=== PATIENT | female | born 1990 | race Caucasian/White ===

== ENCOUNTER 2023-07-17 15:32 | Outpatient (CLI) | payer OTHER, SELFPAY ==
[2023-07-17 16:21] LABS: Hematocrit 40.3 % (37.0-47.0); Hemoglobin 13.4 g/dL (12.0-15.0); Mean Corpuscular HGB Conc 33.3 g/dl (32-36); Mean Corpuscular Hemoglobin 30.2 pg (26-34); Mean Corpuscular Volume 90.8 fl (80-100); Mean Platelet Volume 10.3 fl (7.4-10.4); Platelet Count Result 293 k/mm3 (150-375); Red Blood Count 4.44 M/mm3 (4.2-5.4); Red Cell Distribution Width 12.6 % (11.5-14.5); White Blood Count 9.7 K/mm3 (4.5-10.0)
[2023-07-17 17:44] LABS: Rubella IgG Antibody 20.5 IU/ML
[2023-07-17 18:05] LABS: Hepatitis B Surface Anti Res Negative
[2023-07-18 08:38] LABS: HIV 1/2 Ab P24 Ag Result Negative (Negative)
[2023-07-18 12:09] LABS: Rapid Plasma Reagin Non-Reactive (NonReactive)
[2023-07-18 12:35] LABS: Hepatitis B Surface Antigen Negative (Negative)
== END 2023-07-17 15:33 | disposition home or self-care (01) ==
PROVIDERS: PCP Obstetrics & Gynecology; Visit Provider Obstetrics & Gynecology
DX: Z34.90 Encounter for supervision of normal pregnancy, unspecified, unspecified trimester (principal); Z3A.00 Weeks of gestation of pregnancy not specified
CPT/HCPCS: 36415; 85027; 86592; 86703; 86706; 86762; 86850; 86900; 86901; 87340; G0432

== ENCOUNTER 2023-09-03 14:35 | Outpatient (CLI) | payer OTHER, SELFPAY ==
--- NOTE | ~2023-09-03 | US_ITS ---
EXAMINATION: US OB /maternal detail DATE: 09/03/2023 15:49 INDICATION: anatomic survey. TECHNIQUE: Real-time ultrasound of the pelvis was performed. COMPARISON: None. FINDINGS: There is a single living fetus in variable presentation. The placenta is posterior, 5.2 cm from the cervix. heart rate is 149 beats per minute (bpm). The amniotic fluid volume is subjectively nor mal. The following biometric data were obtained: Biparietal diameter (BPD): 4.2 cm; head circumference (HC): 15.7 cm; abdominal circumference (AC): 13 .5 cm; femur length (FL): 3.0 cm. These measurements are concordant. Estimated weight is 266 g +/- 40 g, which correlates with the 69th percentile when 01/31/24 is us ed as estimated date of delivery. As single measurements, these parameters are each equal to the following estimated gestational ages: BPD: 18 weeks 5 days. HC: 18 weeks 4 days. AC: 19 weeks 0 days. FL: 19 weeks 1 days. estimated gestational age based solely on measurements from this exam is 18 weeks 6 days +/- 1 weeks 2 days. The head anatomy is suboptimally visualized. The cerebral ventricles, cerebellum, cisterna magna, nuc sandee fold, and visualized portions of the spine are normal. The heart is normal. The diaphragm, stomac h, and kidneys are normal. The bladder is not seen. There are two umbilical arteries to yield a 3-ves ledy cord. The cord insertion is normal. IMPRESSION: 1. Single living fetus in variable presentation. 2. Estimated weight is 266 g +/- 40 g, which correlates with the 69th percentile when 01/31/24 i s used as estimated date of delivery. 3. bladder not visualized. Reviewed, dictated and finalized at location A. D SECURITY PROFESSIONAL IMPRESSION: 1. Single living fetus in variable presentation. 2. Estimated weight is 266 g +/- 40 g, which correlates with the 69th pe rcentile when 01/31/24 is used as estimated date of delivery. 3. bladder not visualized.
== END 2023-09-03 14:36 | disposition home or self-care (01) ==
LOC: ANHIMG 14:38
PROVIDERS: PCP Obstetrics & Gynecology; Visit Provider Obstetrics & Gynecology
DX: Z36.9 Encounter for antenatal screening, unspecified (principal); Z3A.18 18 weeks gestation of pregnancy
CPT/HCPCS: 76805

== ENCOUNTER 2023-10-02 13:59 | Outpatient (CLI) | payer OTHER, SELFPAY ==
--- NOTE | ~2023-10-02 | US_ITS ---
EXAMINATION: US OB follow up DATE: 10/02/2023 15:27 INDICATION: Amniotic fluid assessment. Second trimester. bladder not visualized at anatom ic survey. TECHNIQUE: Real-time ultrasound of the pelvis was performed. COMPARISON: Ultrasound 09/03/2023 FINDINGS: There is a single living fetus in vertex presentation. The placenta is posterior. heart rate i s 141 beats per minute (bpm). The bladder is normal. The cervical length is 7.7 cm on transabdo khari images, which is normal. The amniotic fluid index is 10.7 cm, which is normal. The following biometric data were obtained: Biparietal diameter (BPD): 5.2 cm; head circumference (HC): 20.0 cm; abdominal circumference (AC): 18 .7 cm; femur length (FL): 4.0 cm. These measurements are concordant. Estimated weight is 563 g +/- 85 g, which correlates with the 63rd percentile when 01/31/24 is us ed as estimated date of delivery. As single measurements, these parameters are each equal to the following estimated gestational ages: BPD: 21 weeks 6 days. HC: 22 weeks 1 days. AC: 23 weeks 3 days. FL: 23 weeks 0 days. estimated gestational age based solely on measurements from this exam is 22 weeks 4 days +/- 1 weeks 4 days. IMPRESSION: 1. Single living fetus in vertex presentation. 2. Estimated weight is 563 g +/- 85 g, which correlates with the 63rd percentile when 01/31/24 i s used as estimated date of delivery. 3. Normal bladder. 4. Normal amniotic fluid index. Reviewed, dictated and finalized at location E. RATIVE ENGRAVER APPRENTICE IMPRESSION: 1. Single living fetus in vertex presentation. 2. Estimated weight is 563 g +/- 85 g, which correlates with the 63rd pe rcentile when 01/31/24 is used as estimated date of delivery. 3. Normal bladder. 4. Normal amniotic fluid index.
== END 2023-10-02 14:00 | disposition home or self-care (01) ==
PROVIDERS: PCP Obstetrics & Gynecology; Visit Provider Obstetrics & Gynecology
DX: Z36.9 Encounter for antenatal screening, unspecified (principal)
CPT/HCPCS: 76816

== ENCOUNTER 2023-11-09 09:43 | Outpatient (CLI) | payer OTHER, SELFPAY ==
[2023-11-09 18:23] LABS: Hematocrit 38.3 % (37.0-47.0); Hemoglobin 12.6 g/dL (12.0-15.0)
[2023-11-09 18:30] LABS: Glucose 1 Hour 153 mg/dL
[2023-11-09 19:11] LABS: HIV 1/2 Ab P24 Ag Result Negative (Negative)
== END 2023-11-09 09:44 | disposition home or self-care (01) ==
PROVIDERS: PCP Obstetrics & Gynecology; Visit Provider Obstetrics & Gynecology
DX: Z34.90 Encounter for supervision of normal pregnancy, unspecified, unspecified trimester (principal); Z3A.00 Weeks of gestation of pregnancy not specified
CPT/HCPCS: 36415; 85014; 85018; 86703; G0432

== ENCOUNTER 2023-11-17 07:02 | Outpatient (CLI) | payer OTHER, SELFPAY ==
[2023-11-17 07:27] LABS: Glucose Fasting 95 mg/dL
[2023-11-17 09:33] LABS: Glucose 1 Hour 161 mg/dL
[2023-11-17 10:26] LABS: Glucose 2 Hour 141 mg/dL
[2023-11-17 11:44] LABS: Glucose 3 Hour 138 mg/dL
== END 2023-11-17 07:03 | disposition home or self-care (01) ==
LOC: ANHLAB 07:08
PROVIDERS: Visit Provider Obstetrics & Gynecology
DX: O99.810 Abnormal glucose complicating pregnancy (principal); Z3A.00 Weeks of gestation of pregnancy not specified
CPT/HCPCS: 36415; 82951; 82952

== ENCOUNTER 2024-01-08 14:30 | Outpatient (CLI) | payer OTHER, SELFPAY ==
--- NOTE | ~2024-01-08 | US_ITS ---
EXAMINATION: US OB follow up DATE: 01/08/2024 15:55 INDICATION: Assess growth TECHNIQUE: Real-time ultrasound of the pelvis was performed. The interpreting radiologist was not pre sent for the study. COMPARISON: None. FINDINGS: There is a single living fetus in vertex presentation. The placenta is posterior fundal. heart rate is 131 beats per minute (bpm). The amniotic fluid index is 11.0 cm, which is normal (5th%-95%: 7.7-24.9 cm at 36 weeks estimated gestational age). Normal cervical length of at least 4 cm with the internal cervical os obscured by the vertex. The following biometric data were obtained: BPD: 9.1 cm -> 36 weeks 5 days Head circumference: 33.1 cm -> 37 weeks 5 days Abdominal circumference: 33.4 cm -> 37 weeks 2 days Femur length: 7.4 cm -> 37 weeks 6 days These measurements are concordant. Head circumference to abdominal circumference ratio: 0.99 (normal range 0.91-1.05). Estimated weight: 3206 g (+/-) 481 g or 7 lbs. 1 oz. (+/-) 1 lbs. 1 oz. IMPRESSION: 1. Single living fetus in vertex presentation with heart rate of 131r bpm. 2. Normal amniotic fluid index of 11.0 cm. 3. Estimated weight is 74th percentile by Hadlock criteria when 01/31/2024 is used as the estimat ed date of delivery (WALTER). Please correlate with clinical information or earlier ultrasounds for most accurate WALTER. Reviewed, dictated and finalized at location A. IMPRESSION: 1. Single living fetus in vertex presentation with heart rate of 131r bpm . 2. Normal amniotic fluid index of 11.0 cm. 3. Estimated weight is 74th percentile by Hadlock criteria when 01/31/2024 is used as the estimated date of delivery (WALTER). Please correlate with clinical information or earlier ultrasounds for most accurate WALTER.
== END 2024-01-08 14:31 | disposition home or self-care (01) ==
LOC: ANHIMG 14:35
PROVIDERS: Visit Provider Obstetrics & Gynecology
DX: Z34.90 Encounter for supervision of normal pregnancy, unspecified, unspecified trimester (principal); Z3A.00 Weeks of gestation of pregnancy not specified
CPT/HCPCS: 76816

== ENCOUNTER 2024-01-24 14:50 | Inpatient (IN) | payer OTHER, SELFPAY ==
[2024-01-24] VITALS (80 sets, daily range): BP systolic 91–161; BP diastolic 49–80; PULSE 73–132; RESP 16; TEMP 36.6–37.1; O2SAT 93–100; BMI 32.5
[2024-01-24 15:28] LABS: Basophils Percent Auto 0.2 % (0.2-1.2); Eosinophils Percent Auto 0.3 % (0-4.4); Hematocrit 36.4 % (37.0-47.0); Hemoglobin 12.1 g/dL (12.0-15.0); Immature Granulocyte Absolute 0.08 K/mm3 (0.00-0.031); Immature Granulocyte Percent A 0.8 % (0-0.5); Lymphocytes Percent Auto 16.9 % (18.3-44.2); Mean Corpuscular HGB Conc 33.2 g/dl (32-36); Mean Corpuscular Hemoglobin 31.3 pg (26-34); Mean Corpuscular Volume 94.1 fl (80-100); Mean Platelet Volume 10.4 fl (7.4-10.4); Monocytes Absolute Auto 0.7 K/mm3 (0.1-0.6); Monocytes Percent Auto 6.1 % (2.6-8.5); Neutrophils Absolute Auto 8.1 K/mm3 (1.3-6.7); Neutrophils Percent Auto 75.7 % (45.5-73.1); Platelet Count Result 276 k/mm3 (150-375); Red Blood Count 3.87 M/mm3 (4.2-5.4); Red Cell Distribution Width 13.4 % (11.5-14.5); White Blood Count 10.7 K/mm3 (4.5-10.0)
--- NOTE | 2024-01-24 15:29 | LDADM ---
This patient, Elena Thompson, was admitted to Labor/Delivery/Recovery 106 on 01/24/24 at 14:50. Plans for labor, pain management and were discussed with patient. Patient/family oriented to hospital policies and general routines including ID bracelet, bed and alarms, visiting hours, pain management, procedures, bathroom and other care routines, personal items, smoking policy, room service/diet and guest tray routines, infant security routines, and visiting hours. Patient/Family are encouraged to report perceived risks to care and to ask questions if they do not understand what they are told or what they should do. See OBIX for further documentation.
--- NOTE | 2024-01-24 16:09 | PM.IMHP ---
H&P: HPI History of Present Illness Date/Time: 01/24/24 16:09 Chief Complaint: rupture of membranes at term Narrative: 33-year-old female 2 para 1 whose last menstrual period was 05/03/2023, EDC is 01/31/2024, confirmed by 11 week ultrasound who presents at 39 weeks gestation with spontaneous rupture membranes prior to admission. Her has been uncomplicated. She is negative for group B strep. She failed her diabetic screen but passed her 3hour PMFSH Family History Family History Other Chronic obstructive pulmonary disease Diabetes mellitus Social History Social History Smoking status: Never smoker Substance use: never Do You Feel Safe in your Home?: Yes Lack of Transportation: No Lack of Food: Never True Current Housing: I Have Housing Concerned About Future Housing: No Difficulty Paying Gas/Electric Bills: No Difficulty Paying for Meds: No Currently Unemployed: No Education: Bachelor's Degree Difficulty w/ Childcare or Family Care: No Spiritual care concerns: No Meds Home Medications and Allergies Home Medications Medication Instructions Recorded Confirmed Type omeprazole 20 mg tablet,delayed 20 mg PO DAILY 01/01/24 01/01/24 History release vits no.126-ferrous fum 1 tablet PO DAILY 01/01/24 01/01/24 History 28 mg iron-folic acid 800 mcg tablet (Classic ) Allergies Allergy/AdvReac Type Severity Reaction Status Date / Time No Known Allergies Allergy Verified 01/24/24 15:25 Vital Signs Vital Signs - 24 hr 01/24/24 15:15 01/24/24 15:30 01/24/24 15:45 Pulse Rate 109 H 95 99 Blood Pressure 136/80 126/78 127/75 Oxygen Delivery 01/24/24 15:27 Pulse Rate Blood Pressure Oxygen Delivery Room Air Exam Const: General: cooperative, healthy appearing and comfortable Nutritional Appearance: average body habitus Orientation/consciousness: oriented to person, oriented to place and oriented to time HENMT: Head: normal to inspection Resp: Effort & Inspection: normal respiratory effort Cardio: Rate: regular rate Rhythm: regular rhythm Heart sounds: S1 normal heart sound present and S2 normal heart sound present GI: Inspection: normal to inspection ( gravid soft uterus) : External Female Exam: normal external appearance Speculum Exam - Vagina: normal appearance of the vagina Speculum Exam - Cervix: normal appearance of the cervix ( cervix 3cm by RN exam. FHTs reassuring. Gross rupture of membranes noted) H&P: Results Labs Labs: Short CBC 01/24/24 Range/Units 15:23 WBC 10.7 H (4.5-10.0) K/mm3 Hgb 12.1 (12.0-15.0) g/dL Hct 36.4 L (37.0-47.0) % Plt Count 276 (150-375) k/mm3 Assessment and Plan Assessment and plan (1) Term : Code(s): Z34.90 - Encounter for supervision of normal , unspecified, unspecified trimester Status: Acute (2) Spontaneous rupture of membranes: Status: Acute Plan will begin Pitocin as the patient is not miles regularly. She has an epidural candidate and spontaneous vaginal delivery is expected
[2024-01-24] MEDS: OXYTOCIN 30 UNITS/NS 500 ML 30 UNITS/500 ML BAG IV CONT (16:12)
[2024-01-24] MEDS: LACTATED RINGERS 1,000 ML 125 ML IV CONT ×2 (16:12→20:50)
[2024-01-24 17:06] LABS: HIV 1/2 Ab P24 Ag Result Negative (Negative)
--- NOTE | 2024-01-24 17:14 | WPDANESEPP ---
Anes - Eval Pre Procedure Procedure: Labor epidural Date/Time: 01/24/24 17:14 Surgeon: Calvin Escalante Preop Diagnosis: Abdominal pain with contractions Pre Op Diagnosis: IOL Patient Data Age: 33 Gender: F Height: 1.73 m Weight: 97 kg Last Vital Signs Temp 98.8 F 01/24/24 16:00 Pulse 99 01/24/24 15:45 Resp 16 01/24/24 16:00 BP 127/75 01/24/24 15:45 O2 Del Method Room Air 01/24/24 15:27 Allergies Allergy/AdvReac Type Severity Reaction Status Date / Time No Known Allergies Allergy Verified 01/24/24 15:25 Home Medications Medication Instructions Recorded Confirmed Type omeprazole 20 mg tablet,delayed 20 mg PO DAILY 01/01/24 01/01/24 History release vits no.126-ferrous fum 1 tablet PO DAILY 01/01/24 01/01/24 History 28 mg iron-folic acid 800 mcg tablet (Classic ) Laboratory Tests 01/24/24 15:23 WBC 10.7 H K/mm3 (4.5-10.0) RBC 3.87 L M/mm3 (4.2-5.4) Hgb 12.1 g/dL (12.0-15.0) Hct 36.4 L % (37.0-47.0) MCV 94.1 fl (80-100) MCH 31.3 pg (26-34) MCHC 33.2 g/dl (32-36) RDW 13.4 % (11.5-14.5) Plt Count 276 k/mm3 (150-375) MPV 10.4 fl (7.4-10.4) Immature Gran % (Auto) 0.8 H % (0-0.5) Neut % (Auto) 75.7 H % (45.5-73.1) Lymph % (Auto) 16.9 L % (18.3-44.2) [place] % (Auto) 6.1 % (2.6-8.5) Eos % (Auto) 0.3 % (0-4.4) Baso % (Auto) 0.2 % (0.2-1.2) Lymph # (Auto) 1.80 K/mm3 (0.9-3.2) [place] # (Auto) 0.7 H K/mm3 (0.1-0.6) Eos # (Auto) 0.0 K/mm3 (0-0.3) Baso # (Auto) 0.0 K/mm3 (0.0-0.1) Abs Immat Gran (auto) 0.08 H K/mm3 (0.00-0.031) Absolute Neuts (auto) 8.1 H K/mm3 (1.3-6.7) Absolute Nucleated RBC 0.000 K/mm3 (0.0-0.012) Nucleated RBC % 0.0 % (0.0-0.2) RPR Pending HIV 1&2 Ab/P24 Ag 4thGn Negative (Negative) Blood Type O Positive Antibody Screen Negative : gestational age HCG: positive Patient hx anesthesia problems: none Family hx anesthesia problems: none Results Review: All pre-operative results and documents have been reviewed as part of the pre-operative evaluation. [facility] Past Medical History Medical History (Updated 01/24/24 @ 17:15 by Stef Wild Jr., CRNA) Obesity Term Family History Family History Other Chronic obstructive pulmonary disease Diabetes mellitus Social History Social History Smoking status: Never smoker Substance use: never Do You Feel Safe in your Home?: Yes Lack of Transportation: No Lack of Food: Never True Current Housing: I Have Housing Concerned About Future Housing: No Difficulty Paying Gas/Electric Bills: No Difficulty Paying for Meds: No Currently Unemployed: No Education: Bachelor's Degree Difficulty w/ Childcare or Family Care: No Spiritual care concerns: No Exam Day of Procedure 01/24/24 17:14 Patient weight: obese
[2024-01-25] VITALS (78 sets, daily range): BP systolic 103–135; BP diastolic 52–107; PULSE 71–109; RESP 16–18; TEMP 36.6–37.5; O2SAT 97–100
[2024-01-25] MEDS: OXYTOCIN 30 UNITS/NS 500 ML 30 UNITS/500 ML BAG 999 UNITS IV CONT (04:22)
--- NOTE | 2024-01-25 04:30 | P.PCNOB_ITS ---
OB - Vaginal Delivery Note Procedure Delivery date: 01/25/24 Induction method: None Delivery augmentation: Pitocin Delivery monitor: External FHT and Internal Uterine Route of delivery: Episiotomy description: None Laceration Description: Perineal - 1st Degree Delivery repair: vicryl Specimen: No Quantitative Blood Loss (ml): 61 Anesthesia type: Epidural Disposition: Floor Complications: No immediate complications [place] [facility] Date of : 01/25/24 Time of : 04:18 Weeks of gestation at delivery: 39 gender: Female Weight (pounds): 9 Weight (ounces): 9 presentation: vertex position: Right Occiput Anterior Placenta delivery description: Spontaneous Cord Vessel Description: 3 Vessels score one minute: 9 score five minutes: 9
--- NOTE | 2024-01-25 04:32 | P.DS_ITS ---
DS: Admitting Diagnosis Discharge Date 01/26/2024 Admitting Diagnosis Term DS: Discharge Diagnosis Discharge Diagnosis (1) Term : Code(s): Z34.90 - Encounter for supervision of normal , unspecified, unspecified trimester Status: Acute (2) Spontaneous rupture of membranes: Status: Acute DS: Summary Hospital Course Reason for hospitalization: patient was admitted on 01/24/2024 at 39 weeks gestation with spontaneous rupture membranes Hospital Course: patient underwent spontaneous vaginal delivery on 01/25/2024 early a.m.. Her h ospital course of [place] remained afebrile. She was up, eating regular diet, voiding without difficulty, breast-feeding removed generally without complaints. Time Spent with Patient Time attestation: Total time spent providing and/or coordinating discharge services: Exam Const: General: cooperative, healthy appearing and comfortable Nutritional Appearance: average body habitus Orientation/consciousness: oriented to person, oriented to place and oriented to time HENMT: Head: normal to inspection Resp: Effort & Inspection: normal respiratory effort Cardio: Rate: regular rate Rhythm: regular rhythm Heart sounds: S1 normal heart sound present and S2 normal heart sound present GI: Inspection: normal to inspection ( Fundus firm below the umbilicus) DS: Data Data Completed and Pending Labs on day of discharge: Labs from last 24 hours 01/24/24 15:23 WBC 10.7 H RBC 3.87 L Hgb 12.1 Hct 36.4 L MCV 94.1 MCH 31.3 MCHC 33.2 RDW 13.4 Plt Count 276 MPV 10.4 Immature Gran % (Auto) 0.8 H Neut % (Auto) 75.7 H Lymph % (Auto) 16.9 L [place] % (Auto) 6.1 Eos % (Auto) 0.3 Baso % (Auto) 0.2 Lymph # (Auto) 1.80 [place] # (Auto) 0.7 H Eos # (Auto) 0.0 Baso # (Auto) 0.0 Abs Immat Gran (auto) 0.08 H Absolute Neuts (auto) 8.1 H Absolute Nucleated RBC 0.000 Nucleated RBC % 0.0 RPR Pending HIV 1&2 Ab/P24 Ag 4thGn Negative Blood Type O Positive Antibody Screen Negative Discharge Plan Discharge Attending physician on discharge: Chris Reyes Discharging Clinician: Dalla Ava,Chris J. Patient Disposition: Home, Self-Care Activity: may shower and pelvic rest Diet: heart healthy Wound Care Instructions: follow printed instructions Patient Instructions: Antibiotic Form Stand Alone Forms: General Discharge Information Follow-up/Referrals: Roman Malone MD [Physician] - Discharge Medications: Continued Classic 28 mg iron- 800 mcg Tablet 1 tablet PO DAILY omeprazole 20 mg Tablet,Delayed Release (Dr/Ec) 20 mg PO DAILY Date of admission: 01/24/24 14:50 Primary Care Provider: Mónica,Kory Admitting Provider: Roman Malone Attending physician on admission: Roman Malone Condition: Stable
[2024-01-25] MEDS: OXYTOCIN 30 UNITS/NS 500 ML 30 UNITS/500 ML BAG 125 UNITS IV CONT (04:45)
[2024-01-25] MEDS: BENZOCAINE 20% AER SPR (*SP) 56 GM CAN 1 SPRAY TOPICAL (07:01)
[2024-01-25] MEDS: IBUPROFEN 600 MG TABLET PO ×2 (07:01→16:26)
--- NOTE | 2024-01-25 07:20 | PC.NURSE ---
Patient transferred to post room #285 via wheelchair. Support person present. Oriented to unit, room, information board, rooming in, admission packet and security measures. Patient verbalizes understanding.
[2024-01-25] MEDS: DOCUSATE SODIUM 100 MG CAPSULE PO (09:39)
[2024-01-25] MEDS: MULTIVIT/MIN/PREN/FOL AC/IRON TABLET 1 TAB PO (09:39)
[2024-01-25] MEDS: ACETAMINOPHEN 325 MG TABLET 650 MG PO ×2 (09:39→19:51)
--- NOTE | 2024-01-25 13:10 | PC.NURSE ---
Introductions were made, then consulted with patient to assess needs related to . Mother led the conversation with her?plans to pump and bottle feed?her which is how she fed her first baby. Discussed milk production, building/maintaining a milk supply, duration of feeding, signs of adequate intake/output and how to record on the feeding sheet. Mother has her own pump from home that she used with her last baby. She states that her nipples hurt during pumping even though she used the same size flange that previously worked for her. She does have lanolin to apply for comfort. Patient instructed to call out at next pumping to be sized for a correct flange fit. Also discussed use and storage of breastmilk including placing formula into the same bottle that she uses to pump small amounts of colostrum into, so that baby can get the entirety of the pumped colostrum as she drinks the formula. Parents voiced understanding of information, demonstrated learning and will call if there is a request for assistance. Reported to the Primary RN.
[2024-01-25 14:17] LABS: Rapid Plasma Reagin Non-Reactive (NonReactive)
[2024-01-26 05:00] VITALS: BP 107/69; PULSE 74; RESP 18; TEMP 36.8; O2SAT 100
[2024-01-26 05:38] LABS: Hematocrit 35.4 % (37.0-47.0); Hemoglobin 11.5 g/dL (12.0-15.0)
[2024-01-26] MEDS: IBUPROFEN 600 MG TABLET PO (06:42)
[2024-01-26] MEDS: MULTIVIT/MIN/PREN/FOL AC/IRON TABLET 1 TAB PO (06:42)
[2024-01-26] MEDS: ACETAMINOPHEN 325 MG TABLET 650 MG PO (06:43)
[2024-01-26] MEDS: DOCUSATE SODIUM 100 MG CAPSULE PO (06:44)
[2024-01-26 07:00] VITALS: BP 115/79; PULSE 74; RESP 16; TEMP 37.2; O2SAT 99
--- NOTE | 2024-01-26 07:47 | PC.NURSE ---
Patient was given the opportunity to view the discharge video Mother & Baby Care, The First Two Weeks and to ask questions. Patient declined viewing the video and has been given the mother/baby guide for home reference.
--- NOTE | 2024-01-26 07:50 | PM.OBPNVD ---
OB - PN: Subj Subjective Date/time seen: 01/26/24 07:50 Patient comments: no complaints and pain well controlled baby status: doing well OB - PN: Obj Data Labs 01/26/24 04:50 Labs: Laboratory Results - last 24 hr 01/24/24 01/26/24 15:23 04:50 Hgb 11.5 L Hct 35.4 L RPR Non-reactive OB - PN A/P Plan day: 2 Plan: routine care, discharge home and follow up 6 weeks Time Spent With Patient Time: Total time spent is greater than 50% in coordination of care (as documented) at patient's floor/unit and/or counseling patient: Time with patient: less than 15 minutes Exam Const: General: cooperative, healthy appearing and comfortable Nutritional Appearance: average body habitus Orientation/consciousness: oriented to person, oriented to place and oriented to time HENMT: Head: normal to inspection Resp: Effort & Inspection: normal respiratory effort Cardio: Rate: regular rate Rhythm: regular rhythm Heart sounds: S1 normal heart sound present and S2 normal heart sound present GI: Inspection: normal to inspection
--- NOTE | 2024-01-26 11:08 | WPDANLDPN2 ---
Anes-Prog Note L&D Date/Time: 01/26/24 11:08 Comfortable throughout: labor and delivery Neuraxial method: epidural Epidural/Spinal procedure site: clean & non-tender Neuro status: Neuro function grossly intact. Cardiovascular status: normal Respiratory status: normal Airway patency: baseline Mental status: baseline Post-Op hydration status: normal Vital Signs: Last Vital Signs Temp 37.2 C 01/26/24 07:00 Pulse 74 01/26/24 07:00 Resp 16 01/26/24 07:00 BP 115/79 01/26/24 07:00 Pulse Ox 99 01/26/24 07:00 O2 Del Method Room Air 01/26/24 07:00 Pain score (VAS): 2 Post-procedural complaints: none Patient feedback: Patient satisfied with anesthetic care.
[2024-01-28 12:06] VITALS: BP 103/69; PULSE 83; RESP 18; TEMP 36.4; O2SAT 98
== END 2024-01-26 12:25 | disposition home or self-care (01) | DRG 807 ==
LOC: ANHLDR 01-25 04:34 → ANHOB2 01-26 09:52 → ANHLDR 01-28 13:18 → ANHOB2 01-28 13:18
PROVIDERS: Admitting Provider Obstetrics & Gynecology; Visit Provider Obstetrics & Gynecology
DX: O99.214 Obesity complicating childbirth (principal); Z37.0 Single live birth; O70.0 First degree perineal laceration during delivery; Z3A.39 39 weeks gestation of pregnancy
CPT/HCPCS: 36415; 84112; 85014; 85018; 85025; 86592; 86703; 86850; 86900; 86901; A9270; G0432; J2590; J2795; J7120

== ENCOUNTER 2024-10-03 15:46 | Outpatient (CLI) | payer OTHER, SELFPAY ==
--- OUTSIDE RECORDS SUMMARY | 2024-10-03 15:51 | XMS_ITS | Referral Summary ---
Author Organization [facility] [employer] Address [address] [place] [address] Care Team Providers Care Production Administrative Assistant Name Role Phone Unavailable Primary Care Provider Unavailabl e Source Comments [facility] [employer],non-owned Affiliates and Associated Physician Practices is amultiple site organization consisting of ambulatory clinics and hospital sitesin [place], [place], [place] and [place]. This disclosure is being madepursuant to the Care Everywhere program and may not contain all information available regarding this patient. Last updated [email or web address] Allergies No known active allergies Medications * Be aware that medications may not be up to date on this document. Alwaysverify current medications with the patient. Medication Sig Dispensed Refills Start Date End Date Status MV-Min-Fe Fum-FA-DHA ( 1 PO) Take 1 capsule by mouth once daily 11/04/2020 Active ibuprofen (MOTRIN) 600 MG tablet Take 1 (one) tablet by mouth every 6 hours 60 tablet 11/26/2021 Active Additional Information Patient not taking.Reported on 07/26/2022 Active Problems Problem Noted Date Diagnosed Date LGA (large for gestational a ge) fetus affecting management of mother 08/04/2021 GBS bacteriuria 04/14/2021 Lentigines 07/14/2020 Multiple benign melanocytic nevi of upper and lower extremities and trunk 07/14/2020 Resolved Problems Problem Noted Date Diagnosed Date Resolved Date Excessive growth affec ting management of in third trimester, single or unspecified fetus 11/24/2021 11/25/2021 Excessive growth affec ting management of mother in third trimester, antepartum 09/21/2021 09/21/2021 Acne vulgaris 11/05/2018 04/14/2021 Term delivered Immunizations Name Administration Dates Next Due Santhosh [employer] primary monoval ent 12+ yr 0.3mL Purple cap 05/25/2021,09/17/2020,08/27/2020 INFLUENZA VACCINE 05/06/2021, 0,05/06/2018, 017 MMR 11/26/2021(Deferred: See Comments - patient is rubella IMMUNE) TD (ADULT), 5 LF TETANUS TOX OID, ADSORBED, PF 01/05/2016 TDAP (7yrs+) 11/25/2021(Deferred: - Pt already received this ),09/21/2021 Social History Tobacco Use Types Packs/Day Years Used Date Smoking Tobacco: Never Smokeless Tobacco: Never Alcohol Use Standard Drinks/Week Comments Not Currently 0 (1 standard drink = 0.6 oz pur e alcohol) AUDIT-C Answer Date Recorded Q1: How often do you have a drink containing alc ohol? Never 01/26/2020 Average Number of Drinks Not on file 020 Frequency of Binge Drinking Not on file 12/29 PHQ-2 Answer Date Recorded PHQ2 TOTAL SCORE 0 01/09/2022 [place] Depression Scale Answer Date Recorded [place] Depression Scale Total 3 01/09/2022 The thought of harming myself has occurred to me . Never 01/09/2022 Sex and Gender Information Value Date Recorded Sex Assigned at Female 04/06/2021 8:31 AM CDT Gender Identity Female 04/06/2021 8:31 AM CDT Sexual Orientation Not on file Last Filed Vital Signs Vital Sign Reading Time Taken Comments Blood Pressure 111/74 07/26/2022 12:53 PM ELECTROTYPER APPRENTICE Pulse 88 07/26/2022 12:53 PM ELECTROTYPER APPRENTICE Temperature 36.6 C (97.8 F) 07/26/2022 12:53 PM ELECTROTYPER APPRENTICE Respiratory Rate 16 07/26/2022 12:53 PM ELECTROTYPER APPRENTICE Oxygen Saturation 100% 07/26/2022 12:53 PM ELECTROTYPER APPRENTICE Inhaled Oxygen Concentration - - Weight 73.5 kg (162 lb) 07/26/2022 12:53 PM ELECTROTYPER APPRENTICE Height 172.7 cm (5' 8 ) 07/26/2022 12:53 PM ELECTROTYPER APPRENTICE Body Mass Index 24.63 07/26/2022 12:53 PM ELECTROTYPER APPRENTICE Functional Status Functional Status Response Date of Assess ment Is person deaf or have serious hearing difficult y? No 11/24/2021 Is person blind or have serious difficulty seein g? No 11/24/2021 Does person have serious dif ficulty walking/climbing stairs? No 11/24/2021 Does person have difficulty dressing/bathing? No 11/24/2021 Does person have difficulty doing errands alone? No 11/24/2021 Cognitive Status Response Date of Assessm ent Does person have difficulty concentrating/remembering/making decisions? No 11/24/2021 Plan of Treatment Not on file Procedures Procedure Name Priority Date/Time Associated Diagnosis Comments PAP IG LB+HPV APTIMA Routine 01/09/2022 11:23 AM CDT Encounter for screening for cervical cancer HIV-1 HIV-2 ANTIBODY + HIV P24 AG PANEL Routine 04/12/2021 3:10 PM CDT Encounter for confirmation of test result with physical examination from Last 3 Months or Most Recently Relevant to Health Maintenance Results * PAP IG LB+HPV APTIMA (01/09/2022 11:23 AM CDT) Diagnosis [facility] ACCOUNT BILL Comment:NEGATIVE FOR INTRAEP ITHELIAL LESION OR MALIGNANCY. Specimen Adequacy [facility] ACCOUNT BILL Comment: Satisfactory for evaluation. Endocervical and/or squamous metaplastic cells (endocervical component) are present. Clinician Provided ICD10 [facility] ACCOUNT BILL Comment: Z39.2 Z30.430 Z12.4 Performed by [facility] ACCOUNT BILL Comment:Shailesh Richard totechnologist (ASCP) Comment . [facility] ACCOUNT BILL Note [facility] ACCOUNT BILL Comment: The Pap smear is a screening test designed to aid in the detection of premalignant and malignant conditions of the uterine cervix. It is not a diagnostic procedure and should not be used as the sole means of detecting cervical cancer. Both false-positive and false-negative reports do occur. . IGLBP CPT Code Automation [facility] ACCOUNT BILL Comment: This liquid based ThinPrep(R) pap test was screened with the use of an image guided system. Human papillomavirus Aptima Negative Negative [facility] ACCOUNT BILL Comment: This nucleic acid amplification test detects fourteen high-risk HPV types (16,18,31,33,35,39,45,51,52,56,58,59,66,68) without differentiation. Pathology/Cytolog y PART OF UTERINE CERVIX / Unknown 01/09/2022 11:23 AM CDT 01/10/2022 Narrative [facility] ACCOUNT BILL - 01/11/2022 11:06 PM CDT Source.............Cervix No. of containers..01 ThinPrep Vial Resulting Agency Comment Lab Testing performed at: [facility] [id number] Adore Bey MD LAB - PATHOLOGY/CYTO LOGY ORDERABLES [facility] ACCOUNT BILL [address] [place] [address] * HIV-1 HIV-2 ANTIBODY + HIV P24 AG PANEL (04/12/2021 3:10 PM CDT) HIV Screen 4th Generation w Reflex Non Reactive Non Reactive [facility] ACCOUNT BILL Blood BLOOD SPECIMEN / Unknown 04/12/2021 3:10 PM CDT 04/13/2021 Narrative Resulting Agency Comment [facility] performed at: [facility] [address] [id number] Adore Bey MD LAB - CHEMISTRY GAURI NARVAEZ [facility] ACCOUNT BILL [address] [place] [address] from Last 3 Months or Most Recently Relevant to Health Maintenance Administered Medications Advance Directives * Full Code (Latest Code Status on File) Date Activated Date Inactivated Comments 11/24/2021 12:39 AM 11/26/2021 2:28 PM
--- OUTSIDE RECORDS SUMMARY | 2024-10-03 15:51 | XMS_ITS | Clinical Summary ---
Author Organization [facility] [employer] Address [address] [place] [address] Care Team Providers Care Apparel Trimmings Sales Representative Name Role Phone Unavailable Primary Care Provider Unavailabl e Source Comments [facility],non-owned Affiliates and Associated Physician Practices is amultiple site organization consisting of ambulatory clinics and hospital sitesin [place], [place], [place] and [place]. This disclosure is being madepursuant to the Care Everywhere program and may not contain all information available regarding this patient. Last updated [employer] Allergies No known active allergies Medications * [...] Immunizations Name Administration Dates Next Due Santhosh Guzman primary monoval ent 12+ yr 0.3mL Purple cap 05/25/2021,09/17/2020,08/27/2020 INFLUENZA VACCINE 05/06/2021, 0,05/06/2018, 017 MMR 11/26/2021(Deferred: See Comments - patient is rubella IMMUNE) TD (ADULT), 5 LF TETANUS TOX OID, ADSORBED, PF 01/05/2016 TDAP (7yrs+) 11/25/2021(Deferred: - Pt already received this ),09/21/2021 Family History Medical History Relation Name Comments None Known Brother None Known Father None Known Maternal Aunt None Known Maternal Grandfather None Known Maternal Grandmother None Known Maternal Uncle None Known Mother None Known Other None Known Paternal Aunt None Known Paternal Grandfather None Known Paternal Grandmother None Known Paternal Uncle None Known Sister Asthma Neg Hx CVA Neg Hx Cancer - Breast Neg Hx Cancer - Other Neg Hx Cancer - Skin, Melanoma Neg Hx Cancer - Skin, Non Melanoma Neg Hx Eczema Neg Hx Hemophilia Neg Hx Psoriasis Neg Hx Relation Name Status Comments Brother Father Maternal Aunt Maternal Grandfather Maternal Grandmother Maternal Uncle Mother Other Paternal Aunt Paternal Grandfather Paternal Grandmother Paternal Uncle Sister Social History Tobacco Use Types Packs/Day Years [...] Date Recorded PHQ2 TOTAL SCORE 0 01/09/2022 [place] Depression Scale Answer Date Recorded [place] Depression Scale Total 3 01/09/2022 The thought of harming myself has occurred to me . Never 01/09/2022 Sex and Gender Information Value Date Recorded Sex Assigned at Female 04/06/2021 8:31 AM CDT Gender Identity Female 04/06/2021 8:31 AM CDT Sexual Orientation Not on file Last Filed Vital Signs Vital Sign Reading Time Taken Comments Blood Pressure 111/74 07/26/2022 12:53 PM MOBILE ELECTRONICS INSTALLER Pulse 88 07/26/2022 12:53 PM MOBILE ELECTRONICS INSTALLER Temperature 36.6 C (97.8 F) 07/26/2022 12:53 PM MOBILE ELECTRONICS INSTALLER Respiratory Rate 16 07/26/2022 12:53 PM MOBILE ELECTRONICS INSTALLER Oxygen Saturation 100% 07/26/2022 12:53 PM MOBILE ELECTRONICS INSTALLER Inhaled Oxygen Concentration - - Weight 73.5 kg (162 lb) 07/26/2022 12:53 PM MOBILE ELECTRONICS INSTALLER Height 172.7 cm (5' 8 ) 07/26/2022 12:53 PM MOBILE ELECTRONICS INSTALLER Body Mass Index 24.63 07/26/2022 12:53 PM MOBILE ELECTRONICS INSTALLER Plan of Treatment Health Maintenance Due Date Last Done Comments HEPATITIS C SCREENING 12/06/2009 HEPATITIS B VACCINE (1 of 3 - 19+ 3-dose series) 12/10/2010 COVID-19 VACCINE (2023- season) 2024 05/25/2021, 09/17/2020, 08/27/2020 INFLUENZA VACCINE (#1) 2024 , 05/12/2020, 05/06/2018, Additional history exists DEPRESSION SCREENING 07/30/2024 11/16/2021 PAP with HPV 01/09/2027 01/09/2022 DTAP/TDAP/TD VACCINES (3 - Td or Tdap) 09/21/2031 09/21/2021, 01/05/2016 ZOSTER VACCINE (1 of 2) 12/10/2041 HIV SCREENING Completed 04/12/2021 HIB VACCINE Aged Out No longer eligi ble based on patient's age to complete this topic HPV VACCINE Aged Out No longer eligi ble based on patient's age to complete this topic MENINGOCOCCAL (Group B) VACCINE Aged Out No longer eligible based on patient's age to complete this topic MENINGOCOCCAL VACCINE Aged Out No gerson lyndsay eligible based on patient's age to complete this topic PNEUMOCOCCAL VACCINE Aged Out No long er eligible based on patient's age to complete this topic Procedures Procedure Name Priority Date/Time Associated Diagnosis [...] Resulting Agency Comment Lab Testing performed at: [facility] [place] [id number] Adore Bey MD LAB - PATHOLOGY/CYTO LOGY ORDERABLES [facility] ACCOUNT BILL [address] [place] [address] * HIV-1 HIV-2 ANTIBODY + HIV P24 AG PANEL (04/12/2021 3:10 PM CDT) HIV Screen 4th Generation w Reflex Non Reactive Non Reactive [facility] ACCOUNT BILL Blood BLOOD SPECIMEN / Unknown 04/12/2021 3:10 PM CDT 04/13/2021 Narrative Resulting Agency Comment Lab Testing performed at: [facility] [id number] Adore Bey MD LAB - CHEMISTRY ORDE RABLES [facility] ACCOUNT BILL [address] [place] [address] from Last 3 Months or Most Recently Relevant to Health Maintenance Advance Directives * Full Code (Latest Code Status on File) Date Activated Date Inactivated Comments 11/24/2021 12:39 AM 11/26/2021 2:28 PM
--- OUTSIDE RECORDS SUMMARY | 2024-10-03 15:51 | XMS_ITS | Continuity of Care Document ---
Author Organization [facility] Address [address] [place] [address] Phone Care Team Providers Care Grey Washer Name Role Phone Kory Zapata MD Unavailable Unavailable Medications Medication Instructions Dosage Effective Dates (start - stop) Status Comments polymyxin B sulfate 10,000 unit-trimethoprim 1 mg/mL eye drops instill 2 drop by ophthalmic route every 6 hours into affected eye(s) 2 drop - Active albuterol sulfate HFA 90 mcg/actuation aerosol inhaler inhale 2 puff by inhalation route every 4 - 6 hours as needed - Active VITAMINS (unknown strength) Not Available - Active Procedures Procedure Date PREVENTATIVE-EST: OFFICE [id number] ROUTINE VENIPUNCTURE GENERAL HEALTH PANEL FREE T4 (FT4) LIPID PANEL URINALYSIS, REFLEX (UA) VITAMIN B12 (SERUM) ROUTINE VENIPUNCTURE PREVENTATIVE-NEW: Advance Directives Directive Yes / No Effective Date File Name No Information Encounters Encounter Description Practice Location Reason(s) For Visit Diagnoses Date Provider Providers Copied on Encounter Caridad Marrufo, [address], [place], [place], [id number] , [place] tel:[phone] [place] No Information 3 Jodi Horn. [address], [address], [place], [place], [address], [place]. tel:[phone] PREVENTATIVE -EST: 18-39 [place], [address], [place], [place], [address] , tel: [phone] [place] physical (chief complaint)C hronic Conditions (chief complaint)c hronic conditions (chief complaint) Generalized anxiety disorderEncount er for general adult medical examination without abnormal findings 2 Boogie Callaway. [address] [facility], [address], [id number], . tel: [phone] Referring Provider: Kory Magdaleno, [address], [place], [address]. tel: [phone] [place], [address], [place], [place], [address] , tel: [phone] [place] No Information 1 Boogie Callaway. [address] [address] [facility], [address], [id number], . tel: [phone] OFFICE [id number] TAILED [place], [address], [place], [place], [address] , tel: [phone] [place] Shortness of breath (chief complaint) SOB (shortness of breath)CoughCOV ID-19 long hauler 1 Boogie Callaway. [address] [address] [employer] [facility], [address], [id number], . tel: [phone] Referring Provider: Kory Magdaleno, [address], [place], [address]. tel: [phone] [place], [address], [place], [place], [address] , tel: [phone] [place] Routine check-upFatigue , unspecified type 1 Jodi Horn. [address], [address], [place], [address], . tel: [phone] Referring Provider: Kory Magdaleno, [address], [place], [address]. [phone] [place], [address], [place], [place], [address] , tel: [phone] Care Management Anxiety 0 Jodi Horn. [address], [facility] [address], [place], [place], [address], . [phone] PREVENTATIVE -NEW: 18-39 [place], [address], [place], [place], [address] , tel: [phone] [facility] patient (chief complaint) Routine [id number] 9Fatigue, unspecified typeAnxietyGast roesophageal reflux disease without esophagitis 0 Jodi Horn. [address], [facility] [address], [place], [place], [address], . [phone] Referring Provider: Celine Perez Dr [facility] [address], [place], [address]. [phone] Family History Family Member Type Diagnosis Age At Onset No Information Payers Payer name Insurance type Covered green party ID Authoriza tipernell(s) MEDICA SS [facility] [id number] Social History Type Description Quantity Date Captured Comments Alcohol Use Details Unknown Caffeine Use Details Unknown Tobacco Use Status No Information Smoking Status No Information Sex Female Chief Complaint And Reason For Visit No Information Reason For Referral Reason For Referral No Information Plan Of Treatment Date Type Action Status Referral Ordered: Pulmonary function testing (PFT) before and after administration of bronchodilator ordered Referral Referred To: [address] [place], [phone] Ordered: Chest x-ray, PA and lateral ordered History Of Present Illness Encounter Date Complaint History Of Prese nt Illness Chronic Conditions *See Chronic Conditions HPI chronic conditions *See Chronic Conditions HPI physical Patient here for a physical exam.Is 5 months post partumhad a baby boy named Reesediet-balanced; fruits and vegetablesexercise-no formal exercise; active at work; occasional walksdentist-every 6 months; no issueseye doctor-has dry eye; no other issuesgyn-just had 6 week check and release Shortness of breath In the inter noehmi 8 months ago Episodes occur daily. The patient notes inability to get air in. Symptom is aggravated by mod activity (eg. climbing stairs). Symptom is relieved by rest and sitting. Associated symptoms include dry cough. Pertinent negatives include anxiety, chest pressure/discomfort, fever, lower extremity edema, productive cough, purulent sputum, substernal chest pain, unilateral leg edema and wheezing. Shortness of breath (comments) P yoan reports that she had covid in that time has had increased shortness of breathreports that she was active prior to covidwas working on [employer] since stopped and has gained 15 poundsreports that she is unable to climb a flight of stairs without being short of breathdoes get better at rest/sittingalso has a chronic coughstates that her friends tell her that she has been chronically coughing for years/clearing throatpatient reports that she no longer notices itdoes have pnd and she does cough a lot in the amreports that when she was little had to take allergy medicineshe will take zyrtec occasionally, but not taking anything regularlydenies chest pains or edema new patient new patient (comments) aliza mcduffie nt, dx wiht covid last week so [facility] and has to change has been having persistent fatigue, begn in january when she changed from er to gi lab, should be easiergot worse about t amonth ago, had covid, her test was neg at the timelast week, got acutely jomre fatigued with cold/cough sx, got tested sun, notified sunday that she was positivefeels like she is getting better, more energy yesterday, cold sx betterappetite ok, no sobbut concerned about the fatigue preceding covidno f/c/night sweatsno menorrhagia or hx of anemiahad mono and feels like every 5 years or so will have a bout of fatiguehaving some anxiety issues, worries, saw a lot of in er with covid, doesnt want meds but would like to meet with a counsellorgetting enough sleepno chito sxexercises regularly but less so due to coviddiet is goodpmhacl repair and meniscus repair left knee, volleyball injurywisdom teeth extractionacne, on aldactone, began when she got iudiud, sees dr daley with [facility] 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, utd has b een having more issues with gerd last few months, drinks 2-3 coffee a day, takikng tums prnsh; no tob, occ etohfh; mom depression and b12 defic, gp and uncles with etoh abusehad flu vaccine alreadyhad tdap 17rosweighyt up 10 wiht covidheent uri sx with abovepulm negcv neggi gerdgu neg, menses had been regular until iud one year ago, no heavy periodsms negskin acneneuro neg Functional Status Date Functional Assessmen t No Information Instructions Date Instruction Additional Infor ana paula encourage diet and e xerciserecommend regular follow up with dentist and eye doctorrecommend regular follow up with GYNwill get flu shot at work next weekto follow up yearly or sooner should a problem arise Related to Encounter for general adult medical examination without abnormal findings encourage yoga/stret chingconsider trying journalingreach out to wellfirst to get names of counselors Related to Generalized anxiety disorder possibly related to allergiestrial of zyrtec and flonaseto let me know if symptoms do not improve Related to Cough see above Related to COVID -19 long lilliana will check cxr and p ftbeta HCG prior to cxr (trying to get -no missed periods)reviewed most recent labsfurther recommendations to follow Related to SOB (shortness of breath) try to cut out caffe ine and alcoholavoid eating late at nightcont tums or pepcid prn--if sx become frequent, rec. pepcid daily/let me know Related to Gastroesophageal reflux disease without esophagitis seems to be doing we ll/improvingcont supportive care and isolating per rec. of employee healthlet me know if you have any worsening sx Related to COVID-19 check labs as above Related to F atigue, unspecified type refer for cbt Related to Anxie ty cont routine 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 f/u cont regular exercise, healthy dietcont annual flu vaccinerec. folic acid when/if you start child bearingf/u yearlyto come in for labs fasting when out of quarantine (cbc/cmp/lipids/tsh/t4free, t3, b12 level, ua)fu yearly/sooner prn Related to Routine check-up Assessments Type Assessment Date No Information Patient Care Teams Name Effective Dates (start - stop) Status Members No Information
--- OUTSIDE RECORDS SUMMARY | 2024-10-03 15:51 | XMS_ITS | Patient Health Summary ---
Author Organization [facility] Address [address] [place] [address] Care Team Providers Care Inspector [employer] Name Role Phone Unavailable Primary Care Provider Unavailabl e Note from [facility],non-owned Affiliates and Associated Physician Practices is amultiple site organization consisting of ambulatory clinics and hospital sitesin [place], [place], [place] and [place]. This disclosure is being madepursuant to the Care Everywhere program and may not contain all information available regarding this patient. Last updated 18.[facility] Allergies No known active allergies Medications * Be aware that medications may not be up to date on this document. Alwaysverify current medications with the patient. * MV-Min-Fe Fum-FA-DHA ( 1 PO)(Started 11/04/2020) Take 1 capsule by mouth once daily * ibuprofen (MOTRIN) 600 MG tablet(Started 11/26/2021) Take 1 (one) tablet by mouth every 6 hours Active Problems Problem Noted Date Diagnosed Date [...] Acne vulgaris 11/05/2018 04/14/2021 Term delivered Immunizations * Covid Pfizer primary monovalent 12+ yr 0.3mL Purple cap(Given 05/25/2021, 09/17/2020, 08/27/2020) * INFLUENZA VACCINE(Given 05/06/2021, 05/12/2020, 05/06/2018, 04/27/2017) * TD (ADULT), 5 LF TETANUS TOXOID, ADSORBED, PF(Given 01/05/2016) * TDAP (7yrs+)(Given 09/21/2021) Social History Tobacco Use Types Packs/Day Years [...] Date Recorded PHQ2 TOTAL SCORE 0 01/09/2022 [place] Depression Scale Answer Date Recorded [place] Depression Scale Total 3 01/09/2022 The thought of harming myself has occurred to me . Never 01/09/2022 Sex and Gender Information Value Date Recorded Sex Assigned at Female 04/06/2021 8:31 AM CDT Gender Identity Female 04/06/2021 8:31 AM CDT Sexual Orientation Not on file Last Filed Vital Signs Vital Sign Reading Time Taken Comments Blood Pressure 111/74 07/26/2022 12:53 PM YARN DUMPER Pulse 88 07/26/2022 12:53 PM YARN DUMPER Temperature 36.6 C (97.8 F) 07/26/2022 12:53 PM YARN DUMPER Respiratory Rate 16 07/26/2022 12:53 PM YARN DUMPER Oxygen Saturation 100% 07/26/2022 12:53 PM YARN DUMPER Inhaled Oxygen Concentration - - Weight 73.5 kg (162 lb) 07/26/2022 12:53 PM YARN DUMPER Height 172.7 cm (5' 8 ) 07/26/2022 12:53 PM YARN DUMPER Body Mass Index 24.63 07/26/2022 12:53 PM YARN DUMPER Procedures * SARS-COV-2 (COVID-19) AG (IP) POCT(Performed 07/26/2022) Performed for Viral syndrome * INFLUENZA A+B - POCT (IP) URGENT CARE(Performed 07/26/2022) Performed for Viral syndrome * STREP A SCREEN - POCT (IP) URGENT CARE(Performed 07/26/2022) Performed for Viral syndrome * PAP IG LB+HPV APTIMA(Performed 01/09/2022) Performed for Encounter for screening for cervical cancer * SARS-COV-2 (COVID-19)+INFLU A+B AG (IP) POC(Performed 01/01/2022) Performed for Mastitis * CBC W AUTO DIFFERENTIAL(Performed 11/25/2021) * COMPREHENSIVE METABOLIC PANEL(Performed 11/25/2021) * BLOOD GASES CORD XIMENA(Performed 11/24/2021) * NEURAXIAL BLOCK(Performed 11/24/2021) * PROTEIN CREATININE RATIO URINE RANDOM PNL(Performed 11/24/2021) Performed for Excessive growth affecting management of in third trimester, single or unspecified fetus (HCC) * SYPHILIS ANTIBODY CASCADING REFLEX(Performed 11/24/2021) Performed for Excessive growth affecting management of in third trimester, single or unspecified fetus (HCC) * COMPREHENSIVE METABOLIC PANEL(Performed 11/24/2021) Performed for Excessive growth affecting management of in third trimester, single or unspecified fetus (HCC) * TYPE + SCREEN PANEL(Performed 11/24/2021) Performed for Excessive growth affecting management of in third trimester, single or unspecified fetus (HCC) * CBC W AUTO DIFFERENTIAL(Performed 11/24/2021) Performed for Excessive growth affecting management of in third trimester, single or unspecified fetus (HCC) * SONOGRAM - COMPLETE(Performed 11/17/2021) Performed for Encounter for ultrasound to check growth (HCC), Encounter for other screening follow-up (HCC) * SONOGRAM - COMPLETE(Performed 10/20/2021) Performed for Encounter for ultrasound to check growth (HCC), Excessive growth affecting management of in third trimester, single or unspecified fetus (HCC) * SONOGRAM - COMPLETE(Performed 09/15/2021) Performed for 29 weeks gestation of (HCC), Encounter for ultrasound to assess growth (HCC), Encounter for supervision of normal first in third trimester ([facility]) * CBC W/O DIFFERENTIAL(Performed 09/08/2021) Performed for Encounter for supervision of normal first in second trimester ([facility]) * GLUCOSE CHALLENGE(Performed 09/08/2021) Performed for Encounter for supervision of normal first in second trimester ([facility]) * SONOGRAM - COMPLETE(Performed 07/21/2021) Performed for Encounter for anatomic survey ([facility]) * URINALYSIS MICROSCOPIC ONLY REFLEXED(Performed 07/15/2021) Performed for Dysuria * URINALYSIS W/MICROSCOPIC NO CULTURE(Performed 07/15/2021) Performed for Dysuria * CULTURE URINE(Performed 07/15/2021) Performed for Dysuria * CULTURE URINE(Performed 06/10/2021) Performed for GBS bacteriuria * HIV-1 HIV-2 ANTIBODY + HIV P24 AG PANEL(Performed 04/12/2021) Performed for Encounter for confirmation of test result with physical examination * VARICELLA ZOSTER ANTIBODY IGG(Performed 04/12/2021) Performed for Encounter for confirmation of test result with physical examination * PROFILE I W/ HBSAG(Performed 04/12/2021) Performed for Encounter for confirmation of test result with physical examination * CULTURE URINE(Performed 04/12/2021) Performed for Encounter for confirmation of test result with physical examination * URINALYSIS - POINT OF CARE(Performed 04/12/2021) Performed for Encounter for confirmation of test result with physical examination * HCG URINE QUALITATIVE - POINT OF CARE (AMB)(Performed 04/12/2021) Performed for Encounter for confirmation of test result with physical examination * SARS-COV-2 (COVID-19) IN HOUSE(Performed 06/16/2020) Performed for Nasal congestion * SARS-COV-2 (COVID-19) IN HOUSE(Performed 05/28/2020) Performed for Cough * SARS-COV-2 (COVID-19) IN HOUSE(Performed 05/13/2020) Performed for Encounter for screening laboratory testing for COVID-19 virus * SARS-COV2 (COVID-19) PANEL (STL)(Performed 05/13/2020) Performed for Encounter for screening laboratory testing for COVID-19 virus * SARS-COV-2 (COVID-19) ANTIBODY IGG [facility](Performed 02/04/2020) Performed for Immunity status testing * US PELVIS W TRANSVAG NON OB(Performed 04/09/2019) Performed for Pelvic pain in female, Intrauterine contraceptive device threads lost, initial encounter * PAP IG LB CT+NG+TV RFLX HPV ASCU(Performed 11/08/2018) Performed for Well woman exam with routine gynecological exam * CULTURE URINE(Performed 11/08/2018) Performed for Well woman exam with routine gynecological exam * URINALYSIS AUTO - POINT OF CARE (AMB) STL(Performed 11/08/2018) Performed for Pelvic pain in female Results * SARS-COV-2 (COVID-19) AG (IP) POCT (07/26/2022 1:17 PM YARN DUMPER) SARS-CoV-2 Ag Negative Negative [facility] Lot # [id number] [facility] Expiration Date 02/26/2023 [facility] Instrument Serial Number N/[id number] [facility] COVID Internal Control Acceptable Acceptable [facility] Microbiology SPECIMEN FROM NASAL FOSSAE / Unknown 07/26/2022 1:17 PM YARN DUMPER Mayda Pierre MASTICATOR-BRANCH RENTAL MANAGER LAB - POINT OF CARE ORDERABLES Performing Organization Address [facility] Co de Phone Number [facility] [address] [place] [address] * INFLUENZA A+B - POCT (IP) URGENT CARE (07/26/2022 1:17 PM YARN DUMPER) Influenza A Antigen Rapid Negative Negative [facility] Influenza B Antigen Rapid Negative Negative [facility] QC Verified Yes Yes [facility] Other SPECIMEN FROM NASAL FOSSAE / Unknown 07/26/2022 1:17 PM YARN DUMPER Mayda Pierre MASTICATOR-BRANCH RENTAL MANAGER LAB - POINT OF CARE ORDERABLES Performing Organization Address City/[facility] Co de Phone Number [facility] [address] [place] [address] * STREP A SCREEN - POCT (IP) URGENT CARE (07/26/2022 1:02 PM YARN DUMPER) Strep A Rapid POCT Negative Negative [facility] QC Verified Yes Yes [facility] Throat ENTIRE THROAT (SURFACE REGION OF NECK) / Unknown 07/26/2022 1:02 PM YARN DUMPER Mayda Norma Pierre MASTICATOR-BRANCH RENTAL MANAGER LAB - POINT OF CARE ORDERABLES [facility] [address] [phone] * PAP IG LB+HPV APTIMA (01/09/2022 11:23 [...] Resulting Agency Comment Lab Testing performed at: [address] [place]elf[place] Walsh [phone] Adore Bey MD LAB - PATHOLOGY/CYTO LOGY ORDERABLES [facility] ACCOUNT BILL [address] [place] [address] * SARS-COV-2 (COVID-19)+INFLU A+B AG (IP) POC (01/01/2022 5:36 PM CDT) Influenza A Antigen Rapid Negative Negative [facility] Influenza B Antigen Rapid Negative Negative [facility] SARS-CoV-2 Ag Negative Negative [facility] COVID Internal Control Acceptable Acceptable [facility] Lot # [id number] [facility] Expiration Date 06/18/22 [facility] Instrument Serial Number [id number] [facility] Microbiology SPECIMEN FROM NASOPHARYNGEAL STRUCTURE / Unknown 01/01/2022 5:36 PM CDT Narrative [facility] - 01/01/2022 5:53 PM CDT Negative results should be treated as presumptive and confirmation with a molecular assay, if necessary, for patient management, may be performed. Negative results do not rule out COVID-19 and should not be used as the sole basis for treatment or patient management decisions, including infection control decisions. Negative results should be considered in the context of a patient's recent exposures, history and the presence of clinical signs and symptoms consistent with COVID-19. SARS-CoV-2 antigen testing is authorized for use with nasal (Veritor, BinaxNOW, or Kenyatta) or nasopharyngeal (Kenyatta) swabs collected from individuals who are suspected of COVID-19 infection by their healthcare provider within the first five days of onset of symptoms. False-positive SARS-CoV-2 test results are more likely to occur when disease prevalence is low (less than 1%). False-negative SARS-CoV-2 test results are more likely to occur when disease prevalence is high (greater than 10%). This test has been authorized by the Food and Drug administration (FDA)under an Emergency Use Authorization (EUA). This test is only authorized for the duration of time the declaration that circumstances exist justifying the authorization of emergency use of in vitro diagnostic tests for detection of SARS-CoV-2 virus and/or diagnosis of COVID-19 infection under section 564(b)(1) of the Act, 21 U.S.C 360bbb-3 (b)(1), unless the authorization is terminated or revoked sooner. Fact Sheets for this EUA assay are available upon request. Rosangela Maciel MASTICATOR-BRANCH RENTAL MANAGER LAB - POINT OF ND RE ORDERABLES [facility] [address] [place] [address] * (ABNORMAL) CBC W AUTO DIFFERENTIAL (11/25/2021 4:39 AM CDT) Only the most recent of2 resultswithin the time period is included. WBC 16.0(H) 4.4 - 10.7 x10E9/L 11/25/2021 5:23 AM CDT [facility] WBC Corrected 11/25/2021 5:23 AM CDT [facility] RBC 3.48(L) 3.80 - 5.20 x10E12/L 11/25/2021 5:23 AM CDT [facility] Hemoglobin 10.4(L) 12.0 - 15.6 gm/dL 11/25/2021 5:23 AM CDT [facility] Hematocrit 32.7(L) 35.9 - 45.5 % 11/25/2021 5:23 AM CDT [facility] MCV 94.0 80.7 - 98.3 fl 11/25/2021 5:23 AM CDT [facility] MCH 29.9 26.7 - 34.0 pg 11/25/2021 5:23 AM CDT [facility] MCHC 31.8 30.8 - 35.9 gm/dL 11/25/2021 5:23 AM [facility] Platelet Count 307 153 - 416 x10E9/L 11/25/2021 5:23 AM [facility] RDW-CV 13.1 12.1 - 14.9 % 11/25/2021 5:23 AM [facility] MPV 10.9 9.4 - 12.9 fl 11/25/2021 5:23 AM [facility] Neutrophils % 79.6(H) 44.0 - 73.0 % 11/25/2021 5:23 AM [facility] Lymphocytes % 13.1(L) 20.0 - 43.0 % 11/25/2021 5:23 AM [facility] Monocytes % 6.2 5.0 - 13.0 % 11/25/2021 5:23 AM [facility] Eosinophils % 0.2 0.0 - 6.0 % 11/25/2021 5:23 AM [facility] Basophils % 0.2 0.0 - 2.0 % 11/25/2021 5:23 AM [facility] Immature Granulocytes 0.7 0 - 1 % 11/25/2021 5:23 AM [facility] Neutrophil Absolute 12.75(H) 2.01 - 7.14 x10E9/L 11/25/2021 5:23 AM [facility] Lymphocytes Absolute 2.09 1.07 - 3.94 x10E9/L 11/25/2021 5:23 AM [facility] Monocytes Absolute 0.99 0.26 - 1.07 x10E9/L 11/25/2021 5:23 AM [facility] Eosinophils Absolute 0.04 0 - 0.47 x10E9/L 11/25/2021 5:23 AM [facility] Basophils Absolute 0.03 0 - 0.08 x10E9/L 11/25/2021 5:23 AM [facility] Immature Granulocytes Absolute 0.11(H) 0.00 - 0.06 x10E9/L 11/25/2021 5:23 AM [facility] nRBC Auto 0 /100 WBC 11/25/2021 5:23 AM [facility] Blood BLOOD SPECIMEN / Unknown Lab Venipuncture / Unknown 11/25/2021 4:39 AM CDT 11/25/2021 4:56 AM CDT Adore Bey MD LAB - HEMATOLOGY ORD ERABLES [facility] [address] [place], [place] [id number] * (ABNORMAL) COMPREHENSIVE METABOLIC PANEL (11/25/2021 4:38 AM CDT) Only the most recent of2 resultswithin the time period is included. Glucose 91 70 - 105 mg/dL 11/25/2021 5:41 AM [facility] Sodium 137 136 - 145 mmol/L 11/25/2021 5:41 AM [facility] Potassium 4.0 3.5 - 5.1 mmol/L 11/25/2021 5:41 AM [facility] Chloride 108(H) 98 - 107 mmol/L 11/25/2021 5:41 AM [facility] CO2 21(L) 23 - 31 mmol/L 11/25/2021 5:41 AM T [facility] Calcium 8.3(L) 8.4 - 10.4 mg/dL 11/25/2021 5:41 AM [facility] Anion Gap 8 8 - 18 mmol/L 11/25/2021 5:41 AM T [facility] BUN 9 7 - 18.7 mg/dL 11/25/2021 5:41 AM T [facility] Creatinine 0.65 0.57 - 1.11 mg/dL 11/25/2021 5:41 AM [facility] Alkaline Phosphatase 195(H) 40 - 150 U/L 11/25/2021 5:41 AM CDT [facility] ALT 19 0 - 61 U/L 11/25/2021 5:41 AM [facility] AST 20 5 - 34 U/L 11/25/2021 5:41 AM [facility] Protein Total 5.2(L) 6.4 - 8.3 gm/dL 11/25/2021 5:41 AM [facility] Albumin 2.7(L) 3.5 - 5.2 gm/dL 11/25/2021 5:41 AM CDT [facility] Bilirubin Total 0.2 0.2 - 1.2 mg/dL 11/25/2021 5:41 AM CDT [facility] eGFR by CKD-EPI >90 >=90 mL/min/1.7 3 m2 11/25/2021 5:41 AM CDT [facility] Blood BLOOD SPECIMEN / Unknown Lab Venipuncture / Unknown 11/25/2021 4:38 AM CDT 11/25/2021 4:57 AM CDT Narrative [facility] - 11/25/2021 5:41 AM CDT eGFR result was calculated using the updated CKD-EPI Creatinine Equations (2020). Prior to go live 2021 the eGFR was calculated using the MDRD calculation. Please note Reference Range change. Adore Bey MD LAB - CHEMISTRY [facility] Organization Address City/State/ZIP Co de Phone Number [facility] [address] [place] [address] * BLOOD GASES CORD XIMENA (11/24/2021 4:57 PM CDT) pH Cord Venous 7.37 7.28 - 7.40 pH 11/24/2021 5:04 PM CDT [facility] RESP THERAPY pCO2 Cord Venous 41 35 - 45 mm hg 11/24/2021 5:04 PM CDT [facility] RESP THERAPY pO2 Cord Venous 32 22 - 33 mm hg 11/24/2021 5:04 PM CDT [facility] RESP THERAPY HCO3 Cord Venous 24 22 - 24 mmol/L 11/24/2021 5:04 PM CDT [facility] RESP THERAPY BE Cord Venous -1.5 mmol/L 11/24/2021 5:04 PM CDT [facility] RESP THERAPY O2 Saturation Cord Venous 64 % 11/24/2021 5:04 PM CDT [facility] RESP THERAPY Sample Site UMB 11/24/2021 5:04 PM CDT [facility] RESP THERAPY Oxidation Operator ID Dolores Daugherty rossana 11/24/2021 5:04 PM CDT [facility]P [facility]ERAP[facility] Blood CORD BLOOD SPECIMEN / Unknown 11/24/2021 4:57 PM CDT 11/24/2021 4:57 PM CDT Adore Bey MD LAB - BLOOD GASES OR DERABLES [facility] RESP [facility] [address] [phone] * EPIDURAL BLOCK PERF (11/24/2021 9:55 AM CDT) Narrative Cindy Dwyer APRN-[employer] - 11/24/2021 9:55 AM CDT Cindy Dwyer [employer] 11/24/2021 9:57 AM Neuraxial Block Note Pre-Procedure: Procedure Name: Neuraxial Block Patient Location: OB Indications: labor analgesia Pre-Anesthetic Checklist: Patient identified, IV Checked, Risks and benefits discussed, Surgical consent verified, Monitors and equipment, Site examined, Pre-op evaluation done, Time-out performed, Informed consent obtained, Questions answered/anesthesia questions answered and Allergies reviewed Monitors: BP, continuous pluse ox, EKG and End tidal CO2 Patient Condition: awake Procedure: Block Type: Epidural Prep: Betadine Sterile Field: mask, cap/hat, sterile established and sterile gloves Approach: midline Skin was localized? Yes Skin localized with: lidocaine (XYLOCAINE) 1 % injection - Infiltration 3 mL - 11/24/2021 9:38:00 AM Epidural Block: Is this procedure for postop pain? No Needle Type: Tuohy Needle gauge: 18 G Placement Site: L3-L4 Number of Attempts: 1 Loss of Resistance: 6 air Catheter threaded to (cm): 6 Catheter length at skin (cm): 12 CSF Aspirated from catheter: No Blood Aspirated: No Test Dose: 3 mL at 11/24/2021 9:42 AM Test Dose Response: No Epidural Infusion Medications: Ropivacaine: 0.2% with Fentanyl 2mcg/mL in NS , 250 cc (mL) at 12 mL/hr Degree of difficulty: none Procedure Tolerance: tolerated well Sensory Level: T8 Motor Blockade: Yes Position post procedure: head of bed elevated 30 degrees, left lateral decubitus Vital Signs: Vital signs moniitored and stable throughout. See nursing vitals flowsheet for details., heart tones monitored and stable throughout., Vital signs monitored and stable throughout. See anesthesia record for details. Start Time: 11/24/2021 9:38 AM End Time: 11/24/2021 9:42 AM Total Time: 4 Staff: Anesthesia Provider: Cindy Dwyer [employer] - performed the procedure Mayda Villa MD GENERAL ANESTHESIA O RDERABLES * PROTEIN CREATININE RATIO URINE RANDOM PNL (11/24/2021 1:53 AM CDT) Protein Urine <6.8 <11.9 mg/dL 11/24/2021 3:01 AM CDT [facility] Creatinine Urine 34.72 mg/dL 11/24/2021 3:01 AM CDT [facility] Protein/Creatin ine Ratio Urine 11/24/2021 3:01 AM CDT [facility] Comment:Unable to calculate due to limited levels of measurable protein. Urine URINE SPECIMEN OBTAINED BY CLEAN CATCH PROCEDURE / Unknown Collection / Unknown 11/24/2021 1:53 AM CDT 11/24/2021 2:30 AM CDT Adore Bey MD LAB - URINE CHEMISTR Y ORDERABLES Performing Organization Address [facility] de Phone Number [facility] [address] [place], [place] [phone] * SYPHILIS ANTIBODY CASCADING REFLEX (11/24/2021 1:52 AM CDT) Treponema pallidum Antibody Non Reactive Non Reactive 11/24/2021 2:35 AM CDT [facility] Comment: No Laboratory evidence of syphilis infection. Note: Circulating antibodies may be low or undetectable in early infection. If recent exposure is suspected, re-draw sample in 2-4 weeks and repeat testing. Blood BLOOD SPECIMEN / Unknown Venipuncture / Unknown 11/24/2021 1:52 AM CDT 11/24/2021 1:58 AM CDT Adore Bey MD LAB - SEROLOGY ORDER ESTELLA Performing Organization Address [facility] de Phone Number [facility] [address] [place], [place] [phone] * TYPE + SCREEN PANEL (11/24/2021 1:13 AM CDT) ABO Rh O POS 11/24/2021 2:31 AM CDT [facility] Comment:No history; collect retype. Antibody Screen NEG 2:31 AM CDT [facility] Blood Bank BLOOD SPECIMEN / Unknown Venipuncture / Unknown 11/24/2021 1:13 AM CDT 11/24/2021 1:58 AM CDT Adore Bey MD LAB - BLOOD BANK ORD ERABLES [facility] [address] [phone] * SONOGRAM - COMPLETE (11/17/2021 1:32 PM CDT) Only the most recent of4 resultswithin the time period is included. Anatomical Region Laterality Modality Other 11/17/2021 1:32 PM CDT Narrative 11/17/2021 2:08 PM CDT [facility] FAX: Pat. Name: ELENA ORANTES Pat. No: [id number] Study Date: 11/17/2021 1:32pm , Age: 05 1990, 30 Pregnancies: 1 Height: 68 in Weight: 173 lb LMP: 02/24/2021 GA by LMP: 38w0d GA by Base: 38w0d WALTER: 12/01/2021 GA by US: 38w4d WALTRE: 11/27/2021 GA Selected: 38w0d (From Stefany) WALTER: 12/01/2021 Referring MD: Adore Bey MD Cornetist: Hanna Marcos, RDMS, RDCS CPT4: 08728 BMI: 26.3 Hist/Ind: LGA Fetus, GCT - 101 Complete Anatomy MEASUREMENTS & AGE GROWTH EVALUATION Measurement GA Range Srce %for GA Ratios ----- ---- ------- BPD 9.5 cm 38w6d (01p7w-20p6c) Hadl BPD 88% FL/BPD 0.80 (0.71 - 0.87) HC 33.6 cm 38w4d (05o8f-99q7s) Hadl HC 43% FL/AC 0.21 (0.20 - 0.24) AC 35.9 cm 39w5d (83o9n-52p2t) Hadl AC 96% HC/AC 0.94 (0.90 - 1.09) FL 7.6 cm 38w5d (75y4x-80u9n) Hadl FL 73% CI 0.82 (0.70 - 0.86) HL 6.7 cm 39w0d (71g2t-27o3c) Pedro HL 66% GA for sonogram 38w4d (88s2k-87z2v) Weight Estimate: based on (BPD,HC,AC,FL) Hadlock Weight: 3742 gm (3196-4288gm) Had : 8lbs, 3oz Normal: 3236 gm (2427-4045gm) Had Wt% 89% for 38w0d Heart Rate: 147 bpm Amniotic Fluid Index: 12.2cm (07.3-23.9) Q1: 4.4cm Q2: 1.8cm Q3: 2.5cm Q4: 3.6cm EVAL, PLACENTA Presentation: cephalic Placenta: posterior Heart Rate: 147 bpm Amniotic Fluid Volume: normal CLINICAL SUMMARY Study Number: 4 A single fetus is seen in cephalic presentation. The measurements today are consistent with greater than expected size for the WALTER provided. The WALTER is based on LMP. The amniotic fluid volume is within normal limits. IMPRESSION: Single, live, intrauterine at 38w0d size is large for gestational age (LGA) Amniotic fluid volume: within normal limits No major malformations were seen within the limitations of ultrasound RECOMMEND: Ultrasound as clinically indicated Thank you for allowing us the opportunity to care for your patient Gordo Kearns MD <Electronic Signature> 11/17/2021 02:07pm Adore Bey MD [facility] ORDERABLES * (ABNORMAL) CBC W/O DIFFERENTIAL (09/08/2021 2:34 PM YARN DUMPER) WBC 10.8 3.4 - 10.8 x10E3/uL [facility] ACCOUNT BILL RBC 3.49(L) 3.77 - 5.28 x10E6/uL [facility] ACCOUNT BILL Hemoglobin 11.0(L) 11.1 - 15.9 g/dL [facility] ACCOUNT BILL Hematocrit 32.6(L) 34.0 - 46.6 % [facility] ACCOUNT BILL MCV 93 79 - 97 fL [facility] ACCOUNT BILL MCH 31.5 26.6 - 33.0 pg [facility] ACCOUNT BILL MCHC 33.7 31.5 - 35.7 g/dL [facility] ACCOUNT BILL RDW 12.5 11.7 - 15.4 % [facility] ACCOUNT BILL Platelet Count 274 150 - 450 x10E3/uL [facility] ACCOUNT BILL nRBC NOT NEEDED [facility] ACCOUNT BILL Comment:Ancillary determined the test is not needed. Blood BLOOD SPECIMEN / Unknown 09/08/2021 2:34 PM YARN DUMPER 09/08/2021 Narrative Resulting Agency Comment Lab [facility]: [facility] [address] [phone] Adore Bey MD LAB - HEMATOLOGY ORD ERABLES Performing Organization Address City/[facility]/ZIP Co de Phone Number [facility] ACCOUNT BILL [address] [place] [address] * GLUCOSE CHALLENGE (09/08/2021 2:34 PM YARN DUMPER) Pathologist [facility] GTT 1Hr 101 65 - 139 mg/dL [facility] ACCOUNT BILL Comment: According to ADA, a glucose threshold of >139 mg/dL after 50-gram load identifies approximately 80% of women with gestational diabetes mellitus, while the sensitivity is further increased to approximately 90% by a threshold of >129 mg/dL. Blood BLOOD SPECIMEN / Unknown 09/08/2021 2:34 PM YARN DUMPER 09/08/2021 Narrative Resulting Agency Comment [facility] performed [facility]: [facility] [address] [place] [phone] Adore Bey MD LAB - CHEMISTRY ORDE RABTERENCE Performing Organization Address [facility] Co de Phone Number [facility] ACCOUNT BILL [address] [place] [address] * URINALYSIS MICROSCOPIC ONLY REFLEXED (07/15/2021 1:10 PM YARN DUMPER) WBC UA None seen 0 - 5 /hpf [facility] ACCOUNT BILL RBC UA None seen 0 - 2 /hpf [facility] ACCOUNT BILL Epithelial Cells (non renal) 0-10 0 - 10 /hpf [facility] ACCOUNT BILL Epithelial Cells (renal) NOT NEEDED [facility] ACCOUNT BILL Comment:Ancillary determined the test is not needed. Casts ua None seen None seen /lpf [facility] ACCOUNT BILL Casts UA NOT NEEDED [facility] ACCOUNT BILL Comment:Ancillary determined the test is not needed. Crystals UA NOT NEEDED [facility] ACCOUNT BILL Comment:Ancillary determined the test is not needed. Crystals UA NOT NEEDED [facility] ACCOUNT BILL Comment:Ancillary determined the test is not needed. Mucus UA NOT NEEDED [facility] ACCOUNT BILL Comment:Ancillary determined the test is not needed. Bacteria UA None seen None seen/Few [facility] ACCOUNT BILL Yeast UA NOT NEEDED [facility] ACCOUNT BILL Comment:Ancillary determined the test is not needed. Trichomonas UA NOT NEEDED [facility] ACCOUNT BILL Comment:Ancillary determined the test is not needed. Comment Urine NOT NEEDED [facility] ACCOUNT BILL Comment:Ancillary determined the test is not needed. 07/15/2021 1:10 PM YARN DUMPER 07/15/2021 Narrative Resulting Agency Comment Lab Testing performed at: e|[address] [id number] Adore Bey MD LAB - URINALYSIS ORD ERABLES [facility] ACCOUNT BILL [address] [place] [address] * URINALYSIS W/MICROSCOPIC NO CULTURE (07/15/2021 1:10 PM YARN DUMPER) Specific [place] UA 1.017 1.005 - 1.030 [facility] ACCOUNT BILL pH UA 5.5 5.0 - 7.5 [facility] ACCOUNT BILL Color UA Yellow Yellow [facility] ACCOUNT BILL Appearance Clear Clear [facility] ACCOUNT BILL Leukocyte UA Negative Negative [facility] ACCOUNT BILL Protein UA Negative Negative/Tra ce [facility] ACCOUNT BILL Glucose UA Negative Negative [facility] ACCOUNT BILL Ketone UA Negative Negative [facility] ACCOUNT BILL Occult Blood Urine Negative Negative [facility] ACCOUNT BILL Bilirubin UA Negative Negative [facility] ACCOUNT BILL Urobilinogen 0.2 0.2 - 1.0 mg/dL [facility] ACCOUNT BILL Nitrite UA Negative Negative [facility] ACCOUNT BILL Microscopic Examination Urine [facility] ACCOUNT BILL Comment:Microscopic follows if indicated. Microscopic Examination Urine See below: [facility] ACCOUNT BILL Comment:Microscopic was bing cated and was performed. Urine URINE SPECIMEN OBTAINED BY CLEAN CATCH PROCEDURE / Unknown 07/15/2021 1:10 PM YARN DUMPER 07/15/2021 Narrative Resulting Agency Comment Lab Testing performed at: [place] [id number] [phone] Adore Bey MD LAB - URINALYSIS ORD ERABLES Performing Organization Address [facility] Co de Phone Number [facility] ACCOUNT BILL [address] [place] [address] * CULTURE URINE (07/15/2021 1:10 PM YARN DUMPER) Only the most recent of4 resultswithin the time period is included. Pathologist [facility] Urine Culture Routine Final report [facility] ACCOUNT BILL Result 1 [facility] ACCOUNT BILL Comment: Mixed urogenital lauri 10,000-25,000 colony forming units per mL Urine URINE SPECIMEN OBTAINED BY CLEAN CATCH PROCEDURE / Unknown 07/15/2021 1:10 PM YARN DUMPER 07/15/2021 Narrative Resulting Agency Comment Lab Testing performed at: [facility] [address] [place] [phone] Adore Bey MD LAB - MICROBIOLOGY O RDERABLES Performing Organization Address [facility] de Phone Number [facility] ACCOUNT BILL [address] [place] [address] * (ABNORMAL) PROFILE I W/ HBSAG (04/12/2021 3:10 PM CDT) [facility] Hepatitis B Virus Surface Antigen Negative Negative [facility] ACCOUNT BILL RPR Non Reactive Non Reactive [facility] ACCOUNT BILL Rubella Antibody 3.03 Immune >0.99 index [facility] ACCOUNT BILL Comment: Non-immune <0.90 Equivocal 0.90 - 0.99 Immune >0.99 ABO O [facility] ACCOUNT BILL Rh Type Positive [facility] ACCOUNT BILL Comment: Please note: Prior records for this patient's ABO / Rh type are not available for additional verification. Antibody Screen Negative Negative [facility] ACCOUNT BILL WBC 10.7 3.4 - 10.8 x10E3/uL [facility] ACCOUNT BILL RBC 4.23 3.77 - 5.28 x10E6/uL [facility] ACCOUNT BILL Hemoglobin 12.9 11.1 - 15.9 g/dL [facility] ACCOUNT BILL Hematocrit 39.1 34.0 - 46.6 % [facility] ACCOUNT BILL MCV 92 79 - 97 fL [facility] ACCOUNT BILL MCH 30.5 26.6 - 33.0 pg [facility] ACCOUNT BILL MCHC 33.0 31.5 - 35.7 g/dL [facility] ACCOUNT BILL RDW 11.9 11.7 - 15.4 % [facility] ACCOUNT BILL Platelet Count 296 150 - 450 x10E3/uL [facility] ACCOUNT BILL Granulocytes % 75 Not Estab. % [facility] ACCOUNT BILL Lymphocytes % 19 Not Estab. % [facility] ACCOUNT BILL Monocytes % 5 Not Estab. % [facility] ACCOUNT BILL Eosinophils % 1 Not Estab. % [facility] ACCOUNT BILL Basophils % 0 Not Estab. % [facility] ACCOUNT BILL Immature Cells NOT NEEDED [facility] ACCOUNT BILL Comment:Ancillary determined the test is not needed. Granulocytes Absolute 8.0(H) 1.4 - 7.0 x10E3/uL [facility] ACCOUNT BILL Lymphocytes Absolute 2.0 0.7 - 3.1 x10E3/uL [facility] ACCOUNT BILL Monocytes Absolute 0.6 0.1 - 0.9 x10E3/uL [facility] ACCOUNT BILL Eosinophils Absolute 0.1 0.0 - 0.4 x10E3/uL [facility] ACCOUNT BILL Basophils Absolute 0.0 0.0 - 0.2 x10E3/uL [facility] ACCOUNT BILL Immature Granulocytes 0 Not Estab. % [facility] ACCOUNT BILL Immature Granulocytes Absolute 0.0 0.0 - 0.1 x10E3/uL [facility] ACCOUNT BILL nRBC NOT NEEDED [facility] ACCOUNT BILL Comment:Ancillary determined the test is not needed. Comment Hematology NOT NEEDED [facility] ACCOUNT BILL Comment:Ancillary determined the test is not needed. Blood BLOOD SPECIMEN / Unknown 04/12/2021 3:10 PM CDT 04/13/2021 Narrative Resulting Agency Comment Lab Testing performed at: [facility] [place] [address] [phone] Adore Bey MD LAB - CHEMISTRY GAURI [place] Organization Address City/State/ZIP Co de Phone Number [facility] ACCOUNT BILL [address] [place] [address] * HIV-1 HIV-2 ANTIBODY + HIV P24 AG PANEL (04/12/2021 3:10 PM CDT) HIV Screen 4th Generation w Reflex Non Reactive Non Reactive [facility] ACCOUNT BILL Blood BLOOD SPECIMEN / Unknown 04/12/2021 3:10 PM CDT 04/13/2021 Narrative Resulting Agency Comment Lab Testing performed at: [facility] [place] [address] [phone] Adore Bey MD LAB - CHEMISTRY GAURI NARVAEZ [facility] ACCOUNT BILL [address] [place] [address] * VARICELLA ZOSTER ANTIBODY IGG (04/12/2021 3:10 PM CDT) Pathologist [facility] Varicella zoster Virus Antibody IgG 1,493 Immune >165 index [facility] ACCOUNT BILL Comment: Negative <135 Equivocal 135 - 165 Positive >165 A positive result generally indicates exposure to the pathogen or administration of specific immunoglobulins, but it is not indication of active infection or stage of disease. Blood BLOOD SPECIMEN / Unknown 04/12/2021 3:10 PM CDT 04/13/2021 Narrative Resulting Agency Comment Lab Testing performed at: [facility] [address] [phone] Adore Bey MD LAB - CHEMISTRY GAURI NARVAEZ Performing Organization Address City/[facility]/ZIP Co de Phone Number [facility] ACCOUNT BILL [address] [place] [address] * (ABNORMAL) HCG URINE QUALITATIVE - POINT OF CARE (AMB) (04/12/2021) [facility] HCG Qual Urine Positive(A ) Negative QC Verified Yes Yes Urine URINE / Unknown 04/12/2021 Adore Bey MD LAB - POINT OF CARE ORDERABLES * URINALYSIS - POINT OF CARE (04/12/2021) [facility] Clarity UA POCT 0 Color UA POCT 0 Leukocyte UA neg Negative Nitrite UA POCT neg Negative Urobilinogen UA 0.2 0.1 - 1.0 Protein UA POCT trace Negative pH UA 5.5 5.0 - 8.0 pH units Blood UA neg Negative Specific [place] UA POCT 1.030 1.002 - 1.030 Ketone UA neg Negative Bilirubin UA POCT neg Negative Glucose UA neg Negative Urine URINE / Unknown 04/12/2021 Adore Bey MD LAB - POINT OF CARE ORDERABLES * (ABNORMAL) [employer] [facility] COVID LAB ([facility]) (06/16/2020 10:42 AM YARN DUMPER) Only the most recent of3 resultswithin the time period is included. COVID-19 PCR Detected( AA) Not detected 06/18/2020 12:31 AM YARN DUMPER [facility]CRO[facility] Microbiology SPECIMEN FROM NASOPHARYNGEAL STRUCTURE / Unknown Collection / Unknown 06/16/2020 10:42 AM YARN DUMPER 06/16/2020 10:42 AM YARN DUMPER Narrative [facility] - 06/18/2020 12:31 AM YARN DUMPER This nucleic acid amplification assay performance was validated by [facility]. This test has been authorized by the Food and Drug administration (FDA)under an Emergency Use Authorization (EUA). This test has been validated in accordance with the FDA's guidance document Policy for Diagnostic Testing in Laboratories Certified to perform High Complexity Testing under CLIA prior to Emergency Use Authorization for Coronavirus Disease-2019 during the Public Health Emergency issued on September 27, 2019. FDA independent review of this validation is pending. This test is only authorized for the duration of time the declaration that circumstances exist justifying the authorization of emergency use of in vitro diagnostic tests for detection of SARS-CoV-2 virus and/or diagnosis of COVID-19 infection under section 564(b)(1) of the Act, 21 U.S.C 360bbb-3 (b)(1), unless the authorization is terminated or revoked sooner. Fact Sheets for this EUA assay are available upon request. Jayla Jackson APRN-BRANCH RENTAL MANAGER LAB - MICROBI OLOGY ORDERABLES [facility] [address] [place] [address], [facility] [phone] * SARS-COV-2 (COVID-19) ANTIBODY IGG [facility] (02/04/2020 3:32 PM CDT) SARS COV 2 AB (IGG) Negative Negative [facility] ACCOUNT BILL Comment: This serologic based test was developed by [employer] ([employer]) and its pe rformance characteristics determined by [facility] C Negative results do not rule out SARS-CoV-2 infection, parti cularly in those who have been in contact with the virus. Follow-up testing Results from antibody testing should not be used as the sole basis to diagnose or exclude SARS-CoV-2 infection or to inform infection s False positive results may be due to past or present infecti on with [id number] coronavirus strains. Rigorous scientific studies have not been completed to deter mine if detectable IgG to SARS-CoV-2 confers protective immunity. Blood BLOOD SPECIMEN / Unknown 02/04/2020 3:32 PM CDT 02/04/2020 Narrative Resulting Agency Comment Lab Testing performed at: [address] [place] [phone] Ashkan Kern MASTICATOR-BRANCH RENTAL MANAGER LAB - CHEMI STRY ORDERABLES [facility] ACCOUNT BILL [address] [place] [address] * US PELVIS W TRANSVAG NON OB (04/09/2019 11:28 AM CDT) Anatomical Region Laterality Modality Pelvis Ultrasound 04/09/2019 2:09 PM CDT Impressions 04/09/2019 2:[address]. Follicular cysts. Reading Radiologist: Karen Alvarez MD on 04/09/2019 at 2:12 PM Narrative 04/09/2019 2:12 PM CDT Ultrasound pelvis transabdominal and transvaginal INDICATION: Pelvic pain Grayscale ultrasound of the pelvis is performed transabdominally and transvaginally. Uterus measures 7.6 x 2.6 x 3.5 cm. The echogenic IUD is seen in place within the endometrial stripe. Endometrium measures 2.5 mm. Bilateral follicular cysts are present on each ovary. On the right the largest follicular cyst measures 1.7 cm. Right ovary itself measures 3.4 x 2.4 x 2.3 cm. Left ovary measures 3.6 x 2.8 x 2.7 cm with a 1.3 cm follicular cysts. There is normal color flow, color spectral Doppler ultrasound, normal arterial and venous waveforms documented to each ovary. Procedure Note Karen Alvarez MD - 04/09/2019 Ultrasound pelvis transabdominal and transvaginal INDICATION: Pelvic pain Grayscale ultrasound of the pelvis is performed transabdominally and transvaginally. Uterus measures 7.6 x 2.6 x 3.5 cm. The echogenic IUD is seen in place within the endometrial stripe. Endometrium measures 2.5 mm. Bilateral follicular cysts are present on each ovary. On the right the largest follicular cyst measures 1.7 cm. Right ovary itself measures 3.4 x 2.4 x 2.3 cm. Left ovary measures 3.6 x 2.8 x 2.7 cm with a 1.3 cm follicular cysts. There is normal color flow, color spectral Doppler ultrasound, normal arterial and venous waveforms documented to each ovary. IMPRESSION IUD in place. Follicular cysts. Reading Radiologist: Karen Alvarez MD on 04/09/2019 at 2:12 PM Adore Bey MD US ORDERABLES * PAP IG LB CT+NG+TV RFLX HPV ASCU (11/08/2018 4:01 PM CDT) Diagnosis [facility] ACCOUNT BILL Comment: NEGATIVE FOR INTRAEPITHELIAL LESION OR MALIGNANCY. THIS SPECIMEN WAS RESCREENED PART OF OUR MAT GAUGER PROGRAM. Specimen Adequacy [facility] ACCOUNT BILL Comment: Satisfactory for evaluation. Endocervical and/or squamous metaplastic cells (endocervical component) are present. Clinician Provided ICD10 [facility] ACCOUNT BILL Comment: Z01.419 R10.2 Z30.431 T83.32XA Performed by [facility] ACCOUNT BILL Comment:Susan Fitzpatrick, Cyto technologist (ASC) QC Reviewed by [facility] ACCOUNT BILL Comment:Henny Stauffer, Deedee ervisory Burglary Investigator (ASC) Electronically Signed by [facility] ACCOUNT BILL Comment:Aubrey Solomon isory Burglary Investigator (ASC) Comment . [facility] ACCOUNT BILL Note [facility] [...] the use of an image guided system. Note [facility] ACCOUNT BILL Comment: The HPV DNA reflex criteria were not met with this specimen result therefore, no HPV testing was performed. . Chlamydia trachomatis CEZAR Negative Negative [facility] ACCOUNT BILL GC CEZAR Negative Negative [facility] ACCOUNT BILL Trichomonas vaginalis by CEZAR Negative Negative [facility] ACCOUNT BILL PART OF UTERINE CERVIX / Unknown 11/08/2018 4:01 PM CDT 11/08/2018 Narrative [facility] ACCOUNT BILL - 11/13/2018 2:35 PM CDT Source.............Cervix Dates / Results....dyplasia 6 yrs ago and rp Other..............IUD No. of containers..01 ThinPrep Vial Resulting Agency Comment Lab Testing performed at: [address] [phone] Adore Bey MD LAB - PATHOLOGY/CYTO LOGY ORDERABLES [facility] ACCOUNT BILL [address] [place] [address] * URINALYSIS AUTO - POINT OF CARE (AMB) [facility] (11/08/2018) Clarity UA POCT 0 Color UA POCT 0 Leukocyte UA neg Negative Nitrite UA POCT neg Negative Urobilinogen UA 0.2 0.1 - 1.0 Protein UA POCT neg Negative pH UA 5.5 5.0 - 8.0 pH units Blood UA trace Negative Specific [place] UA POCT 1.030 1.002 - 1.030 Ketone UA neg Negative Bilirubin UA POCT neg Negative Glucose UA neg Negative Expiration Date [id number] Lot # [id number] QC Verified Yes Yes Urine URINE / Unknown 11/08/2018 Adore Bey MD LAB - POINT OF CARE ORDERABLES"
[2024-10-03 16:04] LABS: Hematocrit 45.6 % (37.0-47.0); Hemoglobin 15.3 g/dL (12.0-15.0); Mean Corpuscular HGB Conc 33.6 g/dl (32-36); Mean Corpuscular Hemoglobin 30.5 pg (26-34); Mean Corpuscular Volume 90.8 fl (80-100); Mean Platelet Volume 10.1 fl (7.4-10.4); Platelet Count Result 283 k/mm3 (150-375); Red Blood Count 5.02 M/mm3 (4.2-5.4); Red Cell Distribution Width 12.2 % (11.5-14.5); White Blood Count 7.5 K/mm3 (4.5-10.0)
[2024-10-03 17:33] LABS: Free T4 Free Thyroxine Reflex 1.03 ng/dL (0.78-2.19)
== END 2024-10-03 15:47 | disposition home or self-care (01) ==
LOC: ANHLAB 15:49
PROVIDERS: Visit Provider Obstetrics & Gynecology
DX: R53.83 Other fatigue (principal)
CPT/HCPCS: 36415; 82306; 82607; 84439; 84443; 84480; 85027

== ENCOUNTER 2024-10-17 13:47 | Outpatient (CLI) | payer OTHER, SELFPAY ==
--- NOTE | ~2024-10-17 | US_ITS ---
Right side of the ULTRASOUND (Doppler ultrasound interrogation techniques used as needed for this exa m.) Ordering provider: Roman Malone MD History: . Lymphadenopathy . Comparison: None. FINDINGS/impression: Multiple lymph nodes are noted in the right side of the neck with the largest is the zone # 2 measures 0.3 x 0.5 x 0.8 cm and 0.6 x 1.7x 2 cm. Lymph nodes in the zone # 3 are noted which measures 0.2 x 0.5 x 0.8 cm. Lymph node in the area #4 is also noted measuring 0.2 x 0.8 x 1 0.4 cm. Reviewed, dictated and finalized at location A.
--- OUTSIDE RECORDS SUMMARY | 2024-10-17 14:10 | XMS_ITS | Continuity of Care Document ---
Author Organization [facility] Address [address] [place] [address] Phone Care Team Providers Care Journeyman Pipe Welder Name Role Phone Kory Zapata MD Unavailable [...] - Active Procedures Procedure Date PREVENTATIVE-EST: OFFICE [id number] ROUTINE VENIPUNCTURE GENERAL HEALTH PANEL FREE T4 (FT4) LIPID PANEL URINALYSIS, REFLEX (UA) VITAMIN B12 (SERUM) ROUTINE VENIPUNCTURE PREVENTATIVE-NEW: Advance Directives Directive Yes / No Effective Date File Name No Information Encounters Encounter Description Practice Location Reason(s) For Visit Diagnoses Date Provider Providers Copied on Encounter Caridad Marrufo, [address], [place], [place], [address] , [place] tel:[phone] [place] No Information 3 Jodi Horn. [address], [address], [place], [place], [address], [place]. tel:[phone] PREVENTATIVE -EST: 18-39 [facility], [address], [place], [place], [address] , tel: [phone] [place] physical (chief complaint)C hronic Conditions (chief complaint)c hronic conditions (chief complaint) Generalized anxiety disorderEncount er for general adult medical examination without abnormal findings 2 Boogie Callaway. [address] flex[facility]ceipts[facility]iaoy[facility], [address], [id number], . tel: [phone] Referring Provider: Kory Magdaleno, [address], [place], [address]. tel: [phone] [facility], [address], [place], [place], [address] , tel: [phone] [place] No Information 1 Boogie Callaway. [address] [employer]ceiptsMiaoyush[employer] [facility], [address], [id number], . 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 [address] [employer]ceipts[employer]iaoyush[employer] [facility], [address], [id number], . tel: [phone] Referring Provider: Kory Magdaleno, [address], [address]. tel: [phone] [facility], [address], [place], [place], [address] , tel: [phone] [place] Routine check-upFatigue , unspecified type 1 Jodi Horn. [address], [address], [place], [address], . tel: [phone] Referring Provider: Kory Magdaleno, [address], [place], [address]. [phone] [facility], [address], [place], [place], [address] , tel: [phone] Care Management Anxiety 0 Jodi Horn. [address], [facility] [address], [place], [place], [address], . [phone] PREVENTATIVE -NEW: 18-39 [facility], [address], [place], [place], [address] , tel: [phone] [facility] patient (chief complaint) Routine [id number] 9Fatigue, unspecified typeAnxietyGast roesophageal reflux disease without esophagitis 0 J[address] Horn[address], [facility] [address], [place], [place], [address], . [phone] Referring Provider: C[address] [facility] [address], [place], [address]. [phone] Family History Family Member Type Diagnosis Age At Onset No Information Payers Payer name Insurance type Covered democrat ID Authoriza tipernell(s) MEDICA SS [facility] [id number] Social History Type Description Quantity Date Captured [...] Referral Referred To: [address] [place], [phone] Ordered: Chest x-ray, PA and lateral ordered [...] release Shortness of breath In the inter nohemi 8 months ago Episodes occur daily. The [...] was active prior to covidwas working on [employer] since stopped and has gained 15 poundsreports [...] covid last week 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 folic acid when/if you start child bearingf/u yearlyto come in for labs fasting when out of quarantine (cbc/cmp/lipids/tsh/t4free, t3, b12 level, ua)fu yearly/sooner prn Related to Routine check-up Assessments Type Assessment Date No Information Patient Care Teams Name Effective Dates (start - stop) Status Members No Information
--- OUTSIDE RECORDS SUMMARY | 2024-10-17 14:10 | XMS_ITS | Clinical Summary ---
Author Organization [facility] [employer] Address [address] [place] [address] Care Team Providers Care Impregnating Tank Operator Name Role Phone Unavailable Primary Care Provider Unavailabl e Source Comments [facility],non-owned Affiliates and Associated Physician Practices is amultiple site organization consisting of ambulatory clinics and hospital sitesin [place], [place], [place] and [place]. This disclosure is being madepursuant to the Care Everywhere program and may not contain all information available regarding this patient. Last updated 18.Fylet [facility] Allergies No known active allergies Medications * [...] Date Recorded PHQ2 TOTAL SCORE 0 01/09/2022 [place] Depression Scale Answer Date Recorded [place] Depression Scale Total 3 01/09/2022 The thought of harming myself has occurred to me . Never 01/09/2022 Sex and Gender Information Value Date Recorded Sex Assigned at Female 04/06/2021 8:31 AM CDT Gender Identity Female 04/06/2021 8:31 AM CDT Sexual Orientation Not on file Last Filed Vital Signs Vital Sign Reading Time Taken Comments Blood Pressure 111/74 07/26/2022 12:53 PM EMG TECHNICIAN Pulse 88 07/26/2022 12:53 PM EMG TECHNICIAN Temperature 36.6 C (97.8 F) 07/26/2022 12:53 PM EMG TECHNICIAN Respiratory Rate 16 07/26/2022 12:53 PM EMG TECHNICIAN Oxygen Saturation 100% 07/26/2022 12:53 PM EMG TECHNICIAN Inhaled Oxygen Concentration - - Weight 73.5 kg (162 lb) 07/26/2022 12:53 PM EMG TECHNICIAN Height 172.7 cm (5' 8 ) 07/26/2022 12:53 PM EMG TECHNICIAN Body Mass Index 24.63 07/26/2022 12:53 PM EMG TECHNICIAN Plan of Treatment Health Maintenance Due Date [...] complete this topic MENINGOCOCCAL (Group B) VACCINE SHARED DECISION-MAKING Aged Out No longer eligible based on patient's age to complete this topic MENINGOCOCCAL GROUPS A/C/Y/W VACCINE Aged Out No longer eligible based [...] Resulting Agency Comment Lab Testing performed at: [facility] [address] [place] [phone] Adore Bey MD LAB - PATHOLOGY/CYTO LOGY ORDERABLES [facility] ACCOUNT BILL [address] [place] [address] * HIV-1 HIV-2 ANTIBODY + HIV P24 AG PANEL (04/12/2021 3:10 PM CDT) HIV Screen 4th Generation w Reflex Non Reactive Non Reactive [facility] ACCOUNT BILL Blood BLOOD SPECIMEN / Unknown 04/12/2021 3:10 PM CDT 04/13/2021 Narrative Resulting Agency Comment [facility] performed [facility]: [facility] [address] [facility] [phone] Adore Bey MD LAB - CHEMISTRY ORDE RABLES [facility] ACCOUNT BILL [address] [place] [address] from Last 3 Months or Most Recently Relevant to Health Maintenance Advance Directives * Full Code (Latest Code Status on File) Date Activated Date Inactivated Comments 11/24/2021 12:39 AM 11/26/2021 2:28 PM
== END 2024-10-17 13:48 | disposition home or self-care (01) ==
LOC: ANHIMG 13:51
PROVIDERS: Visit Provider Obstetrics & Gynecology
DX: R59.0 Localized enlarged lymph nodes (principal)
CPT/HCPCS: 76536

== ENCOUNTER 2024-12-27 08:21 | Emergency (ER) | payer OTHER, SELFPAY ==
--- NOTE | 2024-12-27 08:23 | ED_ITS ---
HPI - Female Genitourinary General Chief complaint: Urogenital-Female Stated complaint: UTI SYMPTOMS Time Seen by Provider: 12/27/24 08:48 Source: patient, RN notes reviewed and old records reviewed Mode of arrival: ambulatory Limitations: no limitations History of Present Illness HPI Narrative: 34-year-old female presents to the [facility] with 4 day history of burning, frequency, bladder spasms and suprapubic pain. Last menstrual period was 10 December. Has taken Tylenol patient adamantly denies any chances of STD. No vaginal discomfort or discharge. Onset (ago): day(s) (4) Related Data Home Medications ?Medication ?Instructions ?Recorded ?Confirmed ?Last Taken ?Type escitalopram oxalate 10 mg tablet mg 12/27/24 Unknown History Allergies Allergy/AdvReac Type Severity Reaction Status Date / Time No Known Allergies Allergy Verified 12/27/24 08:31 Review of Systems Review of Systems: All systems reviewed & are unremarkable except as noted in HPI and below Constitutional: Constitutional: Reports no additional constitutional complaints ENT: Reports system reviewed and no additional complaints, except as documented Cardiovascular: Cardiovascular: Reports no additional cardiovascular complaints, Denies chest pain and Denies dyspnea Respiratory: Respiratory: Reports no additional respiratory complaints, Denies chest congestion, Denies cough and Denies dyspnea Genitourinary: Genitourinary: Reports as per HPI Musculoskeletal: Musculoskeletal: Reports no additional musculoskeletal complaints Integumentary/Breasts: Skin/Breast: Reports system reviewed and no additional complaints, except as docu PMFSH Past Medical History Medical History Obesity Term Family History Family History Other Chronic obstructive pulmonary disease Diabetes mellitus Social History Social History Smoking status: Never smoker Substance use: never Do You Feel Safe in your Home?: Yes Lack of Transportation: No Lack of Food: Never True Current Housing: I Have Housing Concerned About Future Housing: No Difficulty Paying Gas/Electric Bills: No Difficulty Paying for Meds: No Currently Unemployed: No Education: Bachelor's Degree Difficulty w/ Childcare or Family Care: No Spiritual care concerns: No Comments At the time of my signature, I reviewed and agree with the nursing past medical, surgical, social, and family history. There is no relevant family history pertinent to the patient complaint. Exam Const: General: cooperative, healthy appearing, comfortable, no acute distress, well developed, alert and well nourished Nutritional Appearance: well nourished Orientation/consciousness: patient oriented x3 Limitations: no limitations HENMT: Head: normal to inspection Mouth: Yes Normal oral and palatal mucosa present, Yes lip normal, Yes tongue normal and Yes moist mucous membranes Eyes: General: appearance normal, both eyes and all related structures Alignment and Position: alignment normal Neck: Neck: normal visual inspection, full ROM, no lymphadenopathy and no meningeal signs Chest: Chest palpation & inspection: normal inspection of the chest Resp: Effort & Inspection: normal respiratory effort and able to speak in complete sentences Auscultation: clear to auscultation bilaterally, no crackles, no rales, no rhonchi and no wheezes Cardio: Rate: regular rate GI: GI Palp: No abdominal tenderness : General: Yes no CVA tenderness Skin: General skin exam: normal color and no rashes or lesions noted Neuro: General: patient oriented x3, gait normal, moves all extremities and no meningeal signs Cognition (Neuro): normal cognition Speech: normal speech Gait exam (Neuro): Normal gait present Extrem: General: normal to inspection, full ROM, capillary refill normal and normal gait Psych: Appearance: grossly normal and well kempt Mental Status: mental status grossly normal Speech and movement: Normal speech and movement present and Clear speech present Affect: normal affect Attitude: cooperative Course Course Level of Care: Express Care Visit Vital Signs Vital signs: Vital Signs Temperature 98.8 F 12/27/24 08:32 Pulse Rate 80 12/27/24 08:32 Respiratory Rate 16 12/27/24 08:32 Blood Pressure 122/86 12/27/24 08:32 Pulse Oximetry 99 12/27/24 08:32 Temperature 98.8 F 12/27/24 08:32 Pulse Rate 80 12/27/24 08:32 Respiratory Rate 16 12/27/24 08:32 Blood Pressure 122/86 12/27/24 08:32 Pulse Oximetry 99 12/27/24 08:32 Reviewed MDM - Female Genitourinary MDM Narrative Medical decision making narrative: Patient sitting in exam room. Patient is nontoxic vitals stable. Patient presents with 4 day history of possible UTI symptoms. Urine dip is negative for leukocytes, nitrites. Will culture. Patient appropriate for outpatient treatment with close follow-up Discharge instructions reviewed with patient, as well as provided in writing per nursing staff. The instructions also include specific and strict return/GO TO THE ER as well as f/u information. All questions have been answered, and the patient deny any further questions with discharge and discharge plan. Some parts of this dictation were generated by voice recognition software and may contain typographical and/or grammatical inaccuracies. Differential Diagnosis Differential diagnosis: Likely urinary tract infection and cystitis Lab Data Labs: Lab Results 12/27/24 Range/Units 08:40 POC Urine Color Yellow POC Urine Clarity Clear POC Urine pH 5.5 POC Ur Specif [place] 1.005 POC Urine Protein Negative (Negative) POC Ur Glucose (UA) Negative (Negative) POC Urine Ketones Negative (Negative) POC Urine Blood Trace (Negative) POC Urine Nitrite Negative (Negative) POC Urine Bilirubin Negative (Negative) POC Urine Urobilinogen 0.2 POC U Leukocyte Esteras Negative (Negative) Reviewed Critical Care Time Critical Care Time Critical Care Time: No Discharge Plan Discharge Clinical Impression: Dysuria Patient Disposition: Home Condition: Stable Instructions: Antibiotic Form, Dysuria (ED) Additional Instructions: Increased water intake Take Tylenol as needed for pain Today your urine dip Did not show a UTI. We did send the urine to our lab, If at that time a bacteria grows you will be prescribed an appropriate antibiotic Follow-up with primary care For new or worsening symptoms go directly to the emergency room Patient Language: Citizen Of [place] Prescriptions: New phenazopyridine [Pyridium] 100 mg tablet 100 mg PO TID PRN (Reason: pain) Qty: 6 0RF No Action escitalopram oxalate 10 mg tablet Follow-up/Referrals: Roman Malone MD [Primary Care Provider] - 2 Weeks (express care follow up ) Stand Alone Forms: Work/School Release IP Time of Disposition: 08:59
[2024-12-27 08:32] VITALS: BP 122/86; PULSE 80; RESP 16; TEMP 37.1; O2SAT 99
[2024-12-27 08:43] LABS: EDUAAPPEAR Clear; EDUABILI Negative (Negative); EDUABLOOD Trace (Negative); EDUACOLOR1 Yellow; EDUAGLUCOSE Negative (Negative); EDUAKETONE Negative (Negative); EDUALEUKO Negative (Negative); EDUANITRATE Negative (Negative); EDUAPH 5.5; EDUAPROTEIN Negative (Negative); EDUASPGRAVITY 1.005; EDUAUROBILI 0.2
== END 2024-12-27 09:09 | disposition home or self-care (01) ==
PROVIDERS: Emergency Provider Nurse Practitioner; PCP Obstetrics & Gynecology
DX: R30.0 Dysuria (principal)
CPT/HCPCS: 81003; 87086; 99213; G0463